=== PATIENT | male | born 1955 | race Caucasian/White ===

== ENCOUNTER 2021-09-29 10:42 | Outpatient (CLI) | payer MEDICARE, SELFPAY ==
[2021-09-29 19:17] LABS: Alanine Aminotransferase 13 U/L (6-50); Albumin Level 4.1 g/dL (3.5-5.1); Aspartate Amino Transferase 44 U/L (17-59); Bilirubin,Total 0.6 mg/dL (0.2-1.3)
[2021-09-29 20:57] LABS: Alkaline Phosphatase 2708 U/L (38-126)
== END 2021-09-29 10:43 | disposition home or self-care (01) ==
LOC: ANHGOSHLAB 10:48
PROVIDERS: PCP Podiatrist Foot & Ankle Surgery; Visit Provider Podiatrist Foot & Ankle Surgery
DX: B35.1 Tinea unguium (principal)
CPT/HCPCS: 36415; 80076

== ENCOUNTER → 2021-11-25 10:51 | Outpatient (CLI) | payer MEDICARE, BC, SELFPAY ==
--- NOTE | ~2021-11-25 | CT_ITS ---
EXAMINATION: CT lung screening DATE: 11/25/2021 11:31 INDICATION: Personal history of nicotine dependence, current smoker with 48 pack year history TECHNIQUE: Computed tomography (CT) of the chest was performed without intravenous contrast. The dose -length product (DLP) was 81.17 mGy-cm. Automated exposure control and iterative reconstruction techn ique were employed. COMPARISON: None FINDINGS: There is a 4 mm nodule of the left lower lobe in association with the major fissure. There is mild emphysema. There are some areas of pleural thickening in the upper lobes which could reflect prior asbestos exposure. Calcified pulmonary nodules are consistent with old granulomatous disease. N o pathologically enlarged thoracic lymph nodes are identified. The heart size is normal. There is cor onary artery atherosclerosis. There is soft tissue density in the anterior mediastinum. There is wide spread sclerosis involving all visualized bones. IMPRESSION: 1. Lung-RADS category 2S: Benign appearance or behavior. Continue annual screening with noncontrast l ow-dose chest CT in 12 months. 2. Widespread sclerosis involving all visualized osseous structures concerning for metastatic disease , specifically prostate cancer. Recommend clinical correlation. These findings and recommendations were discussed with Dr. Harris Hodge MD at 1635 hours on 11/25/2021 . Reviewed, dictated and finalized at location B. IMPRESSION: 1. Lung-RADS category 2S: Benign appearance or behavior. Continue annual screen ing with noncontrast low-dose chest CT in 12 months. 2. Widespread sclerosis involving all visualized osseous structures concerning for metastatic disease, specifically prostate cancer. Recommend clinical correl ation. These findings and recommendations were discussed with Dr. Harris Hodge MD at 1 635 hours on 11/25/2021.
--- NOTE | ~2021-11-25 | MR_ITS ---
EXAMINATION: MR lumbar spine wo con DATE: 11/25/2021 11:21 INDICATION: Low back pain. Bilateral leg pain. TECHNIQUE: Magnetic resonance imaging (MRI) of the lumbar spine was performed without intravenous con trast. Sequences included sagittal T2-weighted FSE, sagittal T2-weighted FS FSE, sagittal T1-weighted FSE, and axial T2-weighted FSE. COMPARISON: None FINDINGS: There is 3 degrees levocurvature of lumbar spine. There is 5 mm retrolisthesis of L1 on L2 and 3 mm retrolisthesis of L2 on L3. Vertebral body heights are normal. There is widespread sclerosis involving all bones. There is moderately decreased disc height at L1-L2, mildly decreased disc heigh t at L2-L3 and L3-L4, and moderately decreased disc height at L4-L5. The distal spinal cord signal in tensity is normal. The conus medullaris is at T12-L1. The following disc levels are specifically disc ussed: L1-L2: The disc is bulging. There is mild bilateral facet joint osteoarthritis. There is mild bilater al neural foraminal stenosis. There is mild central canal stenosis. L2-L3: The disc is bulging and has an annular fissure. There is mild bilateral facet joint osteoarthr itis. There is mild bilateral neural foraminal stenosis. There is mild central canal stenosis. L3-L4: The disc is bulging and has an annular fissure. There is mild right and moderate left facet endy int osteoarthritis. There is mild bilateral neural foraminal stenosis. There is mild central canal st enosis. L4-L5: The disc is bulging. There is severe bilateral facet joint osteoarthritis. There is mild bilat eral neural foraminal stenosis. There is mild central canal stenosis. L5-S1: The disc does not extend beyond the endplate margin. There is mild bilateral facet joint osteo arthritis. There is no neural foraminal stenosis. There is no central canal stenosis. IMPRESSION: 1. Diffuse sclerosis of the bones, consistent with metastatic disease. 2. Moderate lumbar spondylosis. Reviewed, dictated and finalized at location A.
== END ==
PROVIDERS: PCP Emergency Medicine; Visit Provider Emergency Medicine
DX: Z12.2 Encounter for screening for malignant neoplasm of respiratory organs (principal); M54.41 Lumbago with sciatica, right side; Z87.891 Personal history of nicotine dependence; M47.896 Other spondylosis, lumbar region
CPT/HCPCS: 71271; 72148

== ENCOUNTER 2021-12-13 10:37 | Outpatient (CLI) | payer MEDICARE, BC, SELFPAY ==
--- NOTE | ~2021-12-13 | CT_ITS ---
EXAMINATION: CT biopsy bone deep ORDER COMPLETED DATE: 12/13/2021 12:11 INDICATION: Prostate cancer with diffuse sclerotic bone lesions. TECHNIQUE: A time-out was performed to verify the patient's name, date of , and procedure to b e performed. The procedure including the risks and benefits was discussed with the patient. Risks dis cussed included bleeding, infection and allergic reaction. The patient understood the risks and agree d to proceed. The skin overlying the left posterior iliac spine was prepped and draped in usual steri le fashion. Anesthetic was administered with 1% lidocaine subcutaneously. An 8 gauge needle was then inserted into the ilium with CT guidance. A core bone marrow biopsy was obtained. The needle was rem xavier and the entry site was cleaned and dressed. There were no immediate complications. The mAs was manually decreased to minimize radiation exposure. The dose-length product was 202.84 mGy-cm. FINDINGS: CT images demonstrate the biopsy needle advanced across a region of increased sclerosis at the left posterior iliac spine. IMPRESSION: 1. Successful CT guided bone marrow biopsy of a region of sclerosis at the left posterior iliac spine . Reviewed, dictated and finalized at location A. IMPRESSION: 1. Successful CT guided bone marrow biopsy of a region of sclerosis at the left posterior iliac spine.
== END 2021-12-13 10:38 | disposition home or self-care (01) ==
LOC: ANHIMG 10:45
PROVIDERS: PCP Emergency Medicine; Visit Provider Internal Medicine Hematology & Oncology
DX: C61 Malignant neoplasm of prostate (principal)
CPT/HCPCS: 20225; 77012; 88307; 88311; 88342

== ENCOUNTER 2024-05-23 23:27 | Inpatient (IN) | payer MEDICARE, SELFPAY ==
--- NOTE | ~2024-05-23 | CT_ITS ---
Clinical Indication: Coffee-ground emesis, upper GI bleed CT Scan of the Chest, Abdomen, and Pelvis with Contrast: Technique: Contiguous sections were acquired throughout the chest, abdomen, and pelvis after intraven ous administration of 100 cc of Omnipaque 350. Dose reduction technique was used on this scan by uti andiing automated exposure control and iterative reconstruction technique. The dose-length product (DL P) was 747.57 mGy-cm. Comparison: 11/25/2021 Findings: Endotracheal tube and NG tube are in place. ET tube tip is at the right mainstem bronchus o rigin. There is no evidence of any significant mediastinal, hilar or axillary lymphadenopathy. The mediastin al soft tissues appear normal. There is no evidence of pleural or pericardial effusion.. Stable areas of mild pleural thickening in the upper lobes, consistent with mild pleural plaques. The lungs are clear. No pulmonary nodules or infiltrates are noted. The liver, spleen, gallbladder, adrenals and kidneys are within normal limits. Possible 2.2 cm hypode nse mass at the pancreatic head. No pancreatic ductal dilatation. There are atherosclerotic calcifica tions of the aorta. No lymphadenopathy. No bowel obstruction or bowel wall thickening. There is no evidence to suggest acute appendicitis. Urinary bladder is collapsed around a Hedrick catheter. No pelvic mass seen. No ascites. 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 Impression: No CTA evidence for active GI bleeding. ET tube tip at the remaining some resorption. Retraction advised. Possible 2.2 cm hypodense pancreatic head mass. Follow-up dedicated pancreatic mass protocol CT recom mended to further evaluate. Diffuse osteoblastic metastatic disease. Reviewed, dictated and finalized at [facility]. Impression: No CTA evidence for active GI bleeding. ET tube tip at the remaining some resorption. Retraction advised. Possible 2.2 cm hypodense pancreatic head mass. Follow-up dedicated pancreatic mass protocol CT recommended to further evaluate. Diffuse osteoblastic metastatic disease.
--- NOTE | ~2024-05-23 | XR_ITS ---
Supine portable view of the abdomen Clinical history: NG tube placement Findings: NG tube in satisfactory position. Bowel gas pattern is nonspecific. No evidence for obstruc tion or free air. No abnormal mass lesion or calcification is seen. Probable extensive osteoblastic m etastatic disease. Impression: NG tube in satisfactory position. Nonspecific bowel gas pattern. Diffuse osteoblastic metastatic disease suspected. Reviewed, dictated and finalized at [facility]. Impression: NG tube in satisfactory position. Nonspecific bowel gas pattern. Diffuse osteoblastic metastatic disease suspected.
--- NOTE | ~2024-05-23 | CT_ITS ---
Non-contrast Head CT History: Altered mental status Technique: Axial non-contrast imaging of the brain was performed. Dose reduction technique was used on this scan by utilizing automated exposure control and iterative reconstruction technique. The dose -length product (DLP) was 756.67 mGy-cm. Findings: There is a moderate-sized acute left subdural hematoma along the left cerebral convexity, m easuring up to 2.3 cm in thickness. Possible small amount of extension of subdural hematoma along the posterior aspect of the falx cerebri. There is compression of the left lateral ventricle, with right alvares midline shift of up to 10 mm. Probable mild dilatation of the right lateral ventricle, which cou ld reflect mild evolving hydrocephalus. The calvarium appears normal. The visualized paranasal sinus es and mastoid air cells are clear. Impression: Moderate-sized acute left subdural hematoma measuring 2.3 cm in thickness. Mass effect results in com pression of the left lateral ventricle and rightward midline shift of up to 10 mm. Probable dilatation of the right lateral ventricle which could reflect developing hydrocephalus. Reviewed, dictated and finalized at location M. Impression: Moderate-sized acute left subdural hematoma measuring 2.3 cm in thickness. Mass effect results in compression of the left lateral ventricle and rightward midl ine shift of up to 10 mm. Probable dilatation of the right lateral ventricle which could reflect developi ng hydrocephalus.
--- NOTE | ~2024-05-23 | XR_ITS ---
Portable chest x-ray Comparison: None Clinical History: ET tube placement Findings: Endotracheal tube, NG tube, and right-sided Mediport in place. Lungs are clear, without fo logan consolidation or pleural effusion. Cardiomediastinal silhouette is stable. Bones and soft tissue s are unremarkable. Impression: Clear lungs. Support tubes, as above. Reviewed, dictated and finalized at location . Impression: Clear lungs. Support tubes, as above.
[2024-05-23 23:24] VITALS: BP 186/70; PULSE 53; RESP 22; TEMP 37; O2SAT 96
[2024-05-24] VITALS (55 sets, daily range): BP systolic 108–182; BP diastolic 54–89; PULSE 53–101; RESP 13–100; TEMP 36.4–36.7; O2SAT 91–100
[2024-05-24 00:26] LABS: Hematocrit 21.4 % (42.0-52.0); Immature Platelet Fraction Pct 8.9 % (0.9-11.2); Mean Corpuscular HGB Conc 31.8 g/dl (32-36); Mean Corpuscular Hemoglobin 27.3 pg (26-34); Mean Corpuscular Volume 85.9 fl (80-100); Red Blood Count 2.49 M/mm3 (4.6-6.20); Red Cell Distribution Width 19.7 % (11.5-14.5); White Blood Count 5.5 K/mm3 (4.5-10.0)
[2024-05-24 00:28] LABS: Platelet Count Result 26 k/mm3 (150-375)
[2024-05-24 00:29] LABS: Hemoglobin 6.8 g/dL (14.0-18.0)
--- OUTSIDE RECORDS SUMMARY | 2024-05-24 00:31 | XMS_ITS ---
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 Pancreatic mass 12/16/2021 Prostate cancer 12/02/2021 Current Treatment and Therapy Plans PROSTATE CABAZITAXEL-PREDNISONE - [facility]* Plan Start Date:05/13/2024 Plan Provider:José Goldman MD Linked Problems Prostate cancer (HCC) Treatment Medications Current Day (Day 1 , Cycle 2 - Planned for 06/06/2024) Next Day (Day 1, Cycle 3 - Planned for 06/27/2024) cabazitaxel (JEVTANA) chemo infusion cabazitaxel (JEVTANA) 38 mg in sodium chloride 0.9 % 250 mL chemo infusion cabazitaxel (JEVTANA) 38 mg in sodium chloride 0.9 % 250 mL chemo infusion Retail: [facility]* Plan Start Date:05/03/2023 Plan Provider:José Goldman MD Linked Problems Prostate cancer (HCC) Treatment Medications Current Day (Day 1, Cycle 6 - Planned for 06/27/2024) No medications scheduled. No medications schedul ed. SUPPORT - HYDRATION WITHOUT ADDITIVES - [facility]* Plan Start Date:04/27/2023 Plan Provider:José Goldman MD Linked Problems Prostate cancer (HCC) Treatment Medications No medications scheduled. SUPPORT - ZOMETA - [facility]* Plan Start Date:08/27/2022 Plan Provider:José Goldman MD Linked Problems Prostate cancer (HCC) Treatment Medications No medications scheduled. Past Treatment and Therapy Plans ONCOLOGY TREATMENT Plan Name Start Date Discontinue Date Treatment Medications Discontinue Reason Plan Provider Cycles PROSTATE DOCETAXEL (TAXOTERE) - [facility] 02/17/20 23 05/07/2024 DOCEtaxel (TAXOTERE) chemo infusionDOCEtaxel (TAXOTERE) using 10mg/mL chemo infusion Plan Clean Up José Goldman MD 15 of 15 cycles started [facility]: Leuprolide (Lupron, Eligard) / Triptorelin (Trelstar) - 3 Month - Prostate 12/08/19 22 02/12/2023 No medications scheduled. Therapy Complete José Goldman MD 6 (7 of 7 cycles) started
--- OUTSIDE RECORDS SUMMARY | 2024-05-24 00:31 | XMS_ITS | Clinical Summary ---
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 Active ondansetron (ZOFRAN) 4 MG TabletIndicati ons:Prostate cancer (HCC) Take 1 Tablet by mouth every 6 hours as needed for Nausea - 1st line. 40 Tablet 3 02/17/20 Active Additional Information Patient not taking.Reported on 05/22/2024 prochlorperazi ne (COMPAZINE) 10 MG TabletIndicati ons:Prostate cancer (HCC) Take 1 Tablet by mouth every 4 hours as needed for Nausea - 1st line. 40 Tablet 3 02/17/20 Active Additional Information Patient not taking.Reported on 05/22/2024 cholestyramine (QUESTRAN) 4 GM Pack Take 1 Packet by mouth 3 times daily (with meals). 180 Packet 3 12/21/20 23 Active Additional Information Patient not taking.Reported on 05/22/2024 mirtazapine (Remeron) 15 MG Tablet Take 0.5 Tablets by mouth nightly. 30 Tablet 2 03/01/20 23 Active Cholecalcifero l (VITAMIN D-3 PO) Take by mouth. Activ e predniSONE (DELTASONE) 5 MG TabletIndicati ons:Prostate cancer (HCC) Take 1 Tablet by mouth 2 times daily. Use as directed. 60 Tablet 3 08/03/19 24 Active Additional Information Patient not taking.Reported on 05/22/2024 dexamethasone (DECADRON) 4 MG TabletIndicati ons:Prostate cancer (HCC) Take 2 Tablets by mouth See Admin Instructions. Take 2 tablets BID on day before and day after docetaxel treatment. 32 Tablet 3 10/12/19 24 Active Additional Information Patient not taking.Reported on 05/22/2024 furosemide (LASIX) 40 MG Tablet Take 1 Tablet by mouth daily. 90 Tablet 1 01/18/20 24 Active potassium chloride SA (KLORCON M) 20 MEQ Tablet Controlled Release TAKE 1 TABLET BY MOUTH DAILY 30 Tablet 02/21/20 24 Active triamcinolone (KENALOG) 0.1 % Cream Application Site:bid affected areas 45 g 02/25/20 24 Active Additional Information Patient not taking.Reported on 05/22/2024 HYDROcodone-ac etaminophen (NORCO) 5-325 MG TabletIndicati ons:Prostate cancer (HCC) Take 1 Tablet by mouth every 8 hours as needed for Moderate or more severe pain. 60 Tablet 03/31/19 25 Active leuprolide (Eligard) 22.5 MG Kit 22.5 mg by Subcutaneous route See Admin Instructions. 1 Kit 5 04/01/19 25 Active Additional Information Patient not taking.Reported on 05/22/2024 ipratropium (ATROVENT) 0.06 % Solution 04/17/19 25 Active megestrol (MEGACE) 400 MG/10ML Suspension Take 10 mL by mouth daily for 30 days. 600 mL 1 05/02/19 25 025 Active Additional Information Patient not taking.Reported on 05/22/2024 OLANZapine (ZyPREXA) 5 MG Tablet Take 1 Tablet by mouth nightly. 30 Tablet 3 05/02/19 25 Active predniSONE (DELTASONE) 10 MG TabletIndicati ons:Prostate cancer (HCC) Take 1 Tablet by mouth daily. 30 Tablet 5 05/16/19 25 Active ondansetron (ZOFRAN) 4 MG TabletIndicati ons:Prostate cancer (HCC) Take 1 Tablet by mouth every 6 hours as needed for Nausea - 1st line. 40 Tablet 3 05/16/19 25 Active Additional Information Patient not taking.Reported on 05/22/2024 prochlorperazi ne (COMPAZINE) 10 MG TabletIndicati ons:Prostate cancer (HCC) Take 1 Tablet by mouth every 4 hours as needed for Nausea - 1st line. 40 Tablet 3 05/16/19 25 Active Additional Information Patient not taking.Reported on 05/22/2024 oxyCODONE-Acet aminophen (PERCOCET) 10-325 MG TabletIndicati ons:Prostate cancer (HCC) Take 1 Tablet by mouth every 6 hours as needed for Moderate or more severe pain. 60 Tablet 05/23/19 25 Active predniSONE (DELTASONE) 10 MG TabletIndicati ons:Prostate cancer (HCC) Take 1 Tablet by mouth daily. 30 Tablet 05/23/19 25 Active tamsulosin (FLOMAX) 0.4 MG Capsule Take 1 Capsule by mouth daily. 90 Capsule 1 05/18/19 24 025 Discontinu ed(Med List Clean Up) sulfamethoxazo le-trimethopri m DS (BACTRIM DS, SEPTRA DS) 800-160 MG Tablet Take 1 Tablet by mouth three times a week for 12 doses. 12 Tablet 04/18/19 25 025 oxyCODONE-Acet aminophen (PERCOCET) 10-325 MG TabletIndicati ons:Prostate cancer (HCC) Take 1 Tablet by mouth every 6 hours as needed for Moderate or more severe pain. 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 Pancreatic mass 12/16/2021 Prostate cancer 12/02/2021 Encounters Date Type Department Care Team Description 05/22/2024 10:15 AM CDT Office Visit [facility] [address] [address] José Goldman MD Prostate cancer (HCC) (Primary Dx) 05/22/2024 9:00 AM CDT Clinical Support [facility] [address] [address] Nurse, Cc Alvaradoayala Prostate cancer (HCC) (Primary Dx) 05/22/2024 Travel 05/15/2024 10:45 AM FACSIMILE OPERATOR Clinical Support [facility] [address] [address] Nurse, Cc Ofzayra Prostate cancer (HCC) 05/15/2024 10:30 AM FACSIMILE OPERATOR Office Visit [facility] [address] [address] José Goldman MD Prostate cancer (HCC) (Primary Dx) 05/15/2024 Travel 05/09/2024 9:30 AM FACSIMILE OPERATOR Ancillary Procedure [facility] [address] [address] Prostate cancer (HCC) 05/09/2024 Telephone [facility] [address] [address] Austyn Pelletier MD 05/09/2024 Travel 05/08/2024 10:50 AM FACSIMILE OPERATOR Care Management [facility] [address] [address] Navigator, Cc Ebony Nurse Care Management (EDUCATION PREP) 05/05/2024 Telephone [facility] [address] [address] Austyn Pelletier MD 05/02/2024 9:15 AM FACSIMILE OPERATOR Office Visit [facility] [address] [phone] oJsé Goldman MD Prostate cancer (HCC) (Primary Dx) 05/02/2024 9:00 AM FACSIMILE OPERATOR Lab [facility] [address] [address] Nurse, Cc Brandyzayra Prostate cancer (HCC) 05/02/2024 Travel 04/18/2024 11:30 AM FACSIMILE OPERATOR Clinical Support [facility] [address] [address] Nurse, Cc Ebony Prostate cancer (HCC) (Primary Dx) 04/18/2024 11:15 AM FACSIMILE OPERATOR Office Visit [facility] [address] [address] José Goldman MD Prostate cancer (HCC) (Primary Dx) 04/18/2024 Telephone [facility] [address] [address] Austyn Pelletier MD 04/18/2024 Travel 04/11/2024 10:00 AM FACSIMILE OPERATOR Lab [facility] [address] [address] Nurse, Cc Ebony Prostate cancer (HCC) 04/11/2024 Travel 04/08/2024 Telephone [facility] [address] [address] Austyn Pelletier MD 04/03/2024 10:45 AM FACSIMILE OPERATOR Office Visit [facility] [address] [address] Jadyn Grewal APRN, CNP Prostate cancer (HCC) (Primary Dx); Weakness 04/03/2024 Travel 04/01/2024 Refill [facility] [place] [address], [address] [place] [address] José Goldman MD Medication Refill (eligard) 03/31/2024 MyChart RX Renewal [facility] [address] [address] José Goldman MD Medication Renewal Reviewed 03/14/2024 Travel 03/07/2024 Refill [facility] [place] [address] [place] [address] José Goldman MD Medication Refill (Lupron/) 03/04/2024 Telephone [facility] [address] [phone] Austyn Pelletier MD 02/29/2024 11:00 AM FACSIMILE OPERATOR Lab [facility] [address] [address] Nurse, Amanda Alvarado Prostate cancer (HCC) 02/29/2024 Travel 02/25/2024 MyChart RX Renewal [facility] [address] [phone] José Goldman MD Medication Renewal Reviewed from Last 3 Months Immunizations Immunization Administration Dates Next Due Covid-19, Mrna, Lnp-s, Pf, 3 0 Mcg/0.3 Ml Dose (Pfizer) 12/16/2020,05/28/2020,05/07/2020 Covid-19, Mrna, Lnp-s, Pf, 3 0 Mcg/0.3 Ml Dose, Michel-sucrose ([email or web address] cloud top) 08/22/2021 Influenza Vaccine 12/03/2019 Influenza Vaccine, MDCK,quad rivalent, pres free 12/18/2018 Influenza, High-dose, Quadrivalent 12/12/2022,,12/16/2020 Influenza, Seasonal, Injectable, Undefined 12/16 Influenza, high-dose, trivalent, PF 01/03/2024 Pneumococcal Vaccine - 13 Valent 12/16/2020 Pneumococcal conjugate PCV20 , polysaccharide [id number] conjugate, adjuvant, PF 01/01/2022 RSV, Recombinant, Protein Jo bunit Rsvpref, Adjuvant Recon (Arexvy) 12/12/2022 Family History Medical History Relation Name Comments Stroke Mother Relation Name Status Comments Brother Alive Father Mother Social History Tobacco Use Types Packs/Day Years Used Date Smoking Tobacco: Heavy Smoker Cigarettes Smokeless Tobacco: Never Tobacco Cessation:Ready to Q uit: Not Asked; Counseling Given: Not Answered Alcohol Use Standard Drinks/Week Comments Never 0 (1 standard drink = 0.6 oz pur e alcohol) Sex and Gender Information Value Date Recorded Sex Assigned at Not on file Legal Sex Male 1:54 PM CDT Gender Identity Not on file Sexual Orientation Not on file Last Filed Vital Signs Vital Sign Reading Time Taken Comments Blood Pressure 130/70 05/22/2024 10:39 AM CDT Pulse 68 05/22/2024 10:39 AM CDT Temperature 36.7 C (98 F) 05/22/2024 10:39 AM CDT Respiratory Rate 18 05/22/2024 10:39 AM CDT Oxygen Saturation 97% 05/22/2024 10:39 AM CDT Inhaled Oxygen Concentration - - Weight 80.3 kg (177 lb) 05/22/2024 10:39 AM CDT Height 170.2 cm (5' 7 ) 05/22/2024 10:39 AM CDT Body Mass Index 27.72 05/22/2024 10:39 AM CDT Plan of Treatment Upcoming Encounters Date Type Department Care Team (Late st Contact Info) Description 05/26/2024 7:45 AM CDT Clinical Support [facility] [address] [phone] Nurse, [facility] 05/26/2024 8:00 AM CDT Procedure Visit [facility] [address] [address] José Goldman MD [address] [place] [address] [place] [id number] Health Maintenance Due Date Last Done Comments Hepatitis C Virus (HCV) Screening 1955 TdaP Immunization 1955 Zoster Immunization (1 of 2) 1972 Colonoscopy 1998 Colorectal Cancer Screening 1998 Cologuard 07/07/2003 Immunochemical Fecal Occult Blood 07/07/2003 AAA Screening Ultrasound 2018 SARS-COV-2 Immunization (7 - Pfizer risk 2023- season) 2024 01/03/2024, 02/23/2022, 08/22/2021, Additional history exists Pneumococcal Immunization (50+ years) Completed 01/01/2022, 12/16/2020 Respiratory Syncytial Virus (RSV) Immunization (Adult) Completed 12/12/2022 Influenza Immunization Completed , 12/12/2022, 12/07/2021, Additional history exists PSA Discussion Discontinued 05/22/2024, 030 08/2024, 05/02/2024, Additional history exists Hepatitis B Immunization Aged Out No longer eligible based on patient's age to complete this topic Meningococcal Immunization (ACWY) Aged Out No longer eligible based on patient's age to complete this topic Rotavirus Immunization Aged Out No lo nger eligible based on patient's age to complete this topic Procedures Procedure Name Priority Date/Time Associated Diagnosis Comments CMP (COMPREHENSIVE METABOLIC PANEL) Routine 05/22/2024 10:18 AM CDT Prostate cancer (HCC) COMPLETE BLOOD COUNT (CBC) WITH DIFF Routine 05/22/2024 10:18 AM CDT Prostate cancer (HCC) PSA DIAGNOSTIC,TOTAL Routine 05/22/2024 10:18 AM CDT Prostate cancer (HCC) COMPLETE BLOOD COUNT (CBC) WITH DIFF Routine 05/15/2024 10:51 AM FACSIMILE OPERATOR Prostate cancer (HCC) CMP (COMPREHENSIVE METABOLIC PANEL) Routine 05/15/2024 10:51 AM FACSIMILE OPERATOR Prostate cancer (HCC) PSA DIAGNOSTIC,TOTAL Routine 05/15/2024 10:51 AM FACSIMILE OPERATOR Prostate cancer (HCC) PET CT TUMOR IMAGING, PROSTATE, SKULL BASE TO MID THIGH Stat with Interpretation 05/09/2024 11:04 AM FACSIMILE OPERATOR Prostate cancer (HCC) CMP (COMPREHENSIVE METABOLIC PANEL) Routine 05/02/2024 9:06 AM FACSIMILE OPERATOR Prostate cancer (HCC) COMPLETE BLOOD COUNT (CBC) WITH DIFF Routine 05/02/2024 9:06 AM FACSIMILE OPERATOR Prostate cancer (HCC) PSA DIAGNOSTIC,TOTAL Routine 05/02/2024 9:06 AM FACSIMILE OPERATOR Prostate cancer (HCC) PSA DIAGNOSTIC,TOTAL Routine 04/11/2024 9:15 AM FACSIMILE OPERATOR Prostate cancer (HCC) CMP (COMPREHENSIVE METABOLIC PANEL) Routine 04/11/2024 9:15 AM FACSIMILE OPERATOR Prostate cancer (HCC) COMPLETE BLOOD COUNT (CBC) WITH DIFF Routine 04/11/2024 9:15 AM FACSIMILE OPERATOR Prostate cancer (HCC) CBC WITH AUTO DIFF OH Routine 02/29/2024 11:02 AM FACSIMILE OPERATOR PSA DIAGNOSTIC,TOTAL Routine 02/29/2024 11:02 AM FACSIMILE OPERATOR Prostate cancer (HCC) CMP (COMPREHENSIVE METABOLIC PANEL) Routine 02/29/2024 11:02 AM FACSIMILE OPERATOR Prostate cancer (HCC) from Last 3 Months Results * (ABNORMAL) PSA DIAGNOSTIC,TOTAL (05/22/2024 10:18 AM CDT) Only the most recent of5 resultswithin the time period is included. PSA 1,773.79( H) 0.00 - 4.00 ng/mL [facility] Comment: Ofelia Paramagnetic Particle Chemiluminescent Immunoassay Method. Standardized against the WHO standard. Blood 05/22/2024 10:[address] [facility] - 05/23/2024 3:52 PM CDT Release to patient->Immediate Austyn Pelletier MD CHEMISTRY ORDERABLES Final Resul t [facility] [facility] [place] [address], * (ABNORMAL) CMP (COMPREHENSIVE METABOLIC PANEL) (05/22/2024 10:18 AM CDT) Only the most recent of5 resultswithin the time period is included. Glucose 97 70 - 105 mg/dL [facility] Blood Urea Nitrogen 12 7 - 25 mg/dL [facility] Creatinine 0.4(L) 0.7 - 1.3 mg/dL [facility] Sodium 136 136 - 145 mEq/L [facility] Potassium 3.9 3.5 - 5.1 mEq/L [facility] Chloride 107 98 - 107 mEq/L [facility] Bicarbonate 22 21 - 31 mEq/L [facility] Total Bilirubin 0.7 0.3 - 1.0 mg/dL [facility] Alk. Phosphatase 756(H) 34 - 104 U/L [facility] Aspartate Aminotransferase 28 13 - 39 U/L [facility] Alanine Aminotransferase 8 7 - 52 U/L [facility] Total Protein 5.6(L) 6.4 - 8.9 g/dL [facility] Albumin 3.5 3.5 - 5.7 g/dL [facility] Calcium 8.2(L) 8.6 - 10.3 mg/dL [facility] Anion Gap 10.9 7.0 - 15.0 mEq/L [facility] Globulin 2.1 2.0 - 3.5 g/dL [facility] EGFR 117 >60 ml/min/1. 73m2 [facility] Comment: This eGFR is calculated using 2020 CKD-EPI Creatinine equation without race modifier based on the NKF-ASN task force recommendations Equation: dDFJ=672*min(SCr/k,1)a*max(SCr/k,1)-1.200*0.9938Age*1.012 (if female), where SCr is serum creatinine, k is 0.7 for females and 0.9 for males, and a is -0.241 for females and -0.302 for males Blood 05/22/2024 10:1 8 AM CDT Narrative [facility] - 05/22/2024 11:22 AM CDT Release to patient->Immediate IS THE PATIENT REQUIRED TO BE FASTING FOR 8 HOURS?->No Austyn Pelletier MD CHEMISTRY ORDERABLES Final Resul t [facility] [employer] [facility] [place] [address], * (ABNORMAL) COMPLETE BLOOD COUNT (CBC) WITH DIFF (05/22/2024 10:18 AM CDT) Only the most recent of4 resultswithin the time period is included. WBC 4.4 4.0 - 10.0 10*3/uL [facility] [employer] [facility] HGB 7.7(L) 13.7 - 17.5 g/dL [facility] [employer] HCT 24.5(L) 40.1 - 51.0 % [facility] [employer] PLT 40(L) 163 - 369 10*3/uL [facility] MPV 10.0 9.4 - 12.4 fL [facility] [facility] RBC 2.85(L) 4.63 - 6.08 10*6/uL [facility] [employer] MCV 86 79 - 95 fL [facility] MCH 27.0 25.6 - 32.2 pg [facility] [facility] MCHC 31.4(L) 32.2 - 36.5 g/dL [facility] RDW 19.8(H) 11.6 - 14.4 % [facility] [employer] Absolute Neutrophil Count 3,293 cells/uL [facility] Absolute Seg Count 3,161 1,440 - 6,600 cells/uL [facility] Absolute Band Count 132 0 - 800 cells/uL [facility] Absolute Lymph Count 527(L) 760 - 4,000 cells/uL [facility] Absolute Ford Count 132(L) 160 - 1,200 cells/uL [facility] Absolute Eos Count 44 0 - 300 cells/uL [facility] Segmented Neutrophils 72(H) 36 - 66 % [facility] [facility] [facility] Band Neutrophils 3 0 - 8 % [facility] Lymphocytes 12(L) 19 - 40 % [facility] Monocytes 3(L) 4 - 12 % [facility] Eosinophils 1 0 - 3 % [facility] Metamyelocytes 4(H) 0 - 2 % C[facility] R [employer] [facility] Myelocytes 5(H) 0 - 2 % [facility] WBC Estimate Normal [facility] [facility] Platelet Estimate Low CA NCER [employer] RBC Morphology Abnormal [facility] R [employer] Anisocytosis 2+ [facility] [facility] [facility] Blood 05/22/2024 10:1 8 AM CDT Narrative [facility] [facility] [facility] - 05/22/2024 2:31 PM CDT Release to patient->Immediate us Austyn Pelletier MD HEMATOLOGY ORDERABLES Final Resu lt [facility] [place] [address], * PET CT TUMOR IMAGING, PROSTATE, SKULL BASE TO MID THIGH (05/09/2024 11:04 AM FACSIMILE OPERATOR) Anatomical Region Laterality Modality BODY N/A Computed Tomogra phy Narrative 05/09/2024 11:44 AM FACSIMILE OPERATOR EXAMINATION: PET CT TUMOR IMAGING, PROSTATE, SKULL BASE TO MID THIGH 05/09/2024 INDICATIONS: Malignant neoplasm of prostate. Metastatic prostate carcinoma 2021 with bone metastases. PSA most recently 535 in April 2024. Back and left arm pain. Pluvicto March 2024. Restaging and subsequent treatment planning. COMPARISON: PET-CT 01/10/2024 as well as exams dating back to 12/05/2021. TECHNIQUE: Following the intravenous administration of 8.33 mCi F 18 Pylarify and 100 CC Omnipaque PET-CT was performed from the skull vertex to the mid thighs multiplanar and MIP reconstructions were created. A dose lowering technique was used for this procedure, which may include, but is not limited to, dose reduction technique(s), automated exposure control techniques, use of iterative reconstruction techniques, and ALARA (as low as reasonably achievable) or ALARA/IMAGE Gently techniques. FINDINGS: Head and neck: Intracranial: No mass, mass effect, or worrisome activity is appreciated. Extracranial: Physiologic glandular activity. A prominent left posterior triangle lymph node has increased in size and demonstrates mild activity (fused axial image 75). Bilateral carotid atherosclerotic calcifications. Chest: Cardiovascular: Right chest wall [id number]. Normal heart size. No significant pericardial effusion. Atherosclerotic calcifications of the coronary arteries and thoracic aorta. The thoracic aorta is normal in caliber. Pulmonary: There are new small bilateral pleural effusions. Pleural plaquing is redemonstrated. No worrisome pulmonary nodules or activity are appreciated. Lymphatics: There is new left axillary and retropectoral hypermetabolic lymphadenopathy which is favored malignant. Abdomen and pelvis: Hepatobiliary: Hepatic steatosis. Hepatic cysts are redemonstrated. No worrisome hepatic or pancreatic activity is noted. Liver parenchyma demonstrates max SUV 3.24. Complex cystic lesion of the pancreatic head again noted, better assessed on previous MRI. No significant biliary ductal dilatation is appreciated. : The adrenal glands are unremarkable. Small left lower pole renal cyst again noted. No hydronephrosis. The urinary bladder is incompletely distended though with irregular wall thickening on the right which appears to be new and is concerning for neoplasm (series 3, image 248 for example). Prostate is present and demonstrates heterogeneous low-level to mild activity, decreased from prior. GI: Colonic diverticulosis without evidence of acute diverticulitis. Appendix is unremarkable. The stomach appears unremarkable. Probable physiologic activity within loops of small bowel. No free intraperitoneal fluid or air is appreciated. Lymphatics: The spleen is within normal limits in size though does appear to have enlarged since prior, may be treatment related. Prominent left inguinal lymph node with low-level activity is unchanged. No developing lymphadenopathy is appreciated in the abdomen or pelvis. Vascular: Atherosclerotic calcifications with no abdominal aortic aneurysm. Musculoskeletal: Redemonstrated is widespread sclerotic osseous metastatic disease of the axial and appendicular skeleton. This is similar to prior in CT appearance though has significantly worsened in the degree of activity, now with heterogeneous hypermetabolic activity throughout. IMPRESSION 1. Evidence of interval disease progression. 2. Widespread osseous metastatic disease has significantly worsened with increased activity throughout. 3. Enlarging hypermetabolic lymph nodes in the neck and chest are favored malignant. 4. Concern for a new urinary bladder mass on the right. Recommend cystoscopy. 5. New small bilateral pleural effusions. 6. Pleural plaquing is redemonstrated. 7. Complex cystic pancreatic head lesion again noted, better assessed on MRI. 8. Heterogeneous low-level to mild prostatic activity, decreased from prior. 9. Interval enlargement of the spleen, still within normal limits in size, potentially treatment related. Electronically signed by: YASMEEN JACKSON MD Date of Signature: 05/09/2024 11:44:38 Procedure Note Yasmeen Jackson MD - 05/09/2024 EXAMINATION: PET CT TUMOR IMAGING, PROSTATE, SKULL BASE TO MID THIGH 05/09/2024 INDICATIONS: Malignant neoplasm of prostate. Metastatic prostate carcinoma 2021 withbone metastases. PSA most recently 535 in April 2024. Back and leftarm pain. Pluvicto March 2024. Restaging and subsequent treatmentplanning. COMPARISON: PET-CT 01/10/2024 as well as exams dating back to 12/05/2021. TECHNIQUE: Following the intravenous administration of 8.33 mCi F 18 Pylarify and 100CC Omnipaque PET-CT was performed from the skull vertex to the mid thighsmultiplanar and MIP reconstructions were created. A dose lowering technique was used for this procedure, which may include,but is not limited to, dose reduction technique(s), automated exposurecontrol techniques, use of iterative reconstruction techniques, and ALARA(as low as reasonably achievable) or ALARA/IMAGE Gently techniques. FINDINGS: Head and neck: Intracranial: No mass, mass effect, or worrisome activity isappreciated. Extracranial: Physiologic glandular activity. A prominent left posteriortriangle lymph node has increased in size and demonstrates mild activity(fused axial image 75). Bilateral carotid atheroscleroticcalcifications. Chest: Cardiovascular: Right chest wall [id number]. Normal heart size. Nosignificant pericardial effusion. Atherosclerotic calcifications of thecoronary arteries and thoracic aorta. The thoracic aorta is normal incaliber. Pulmonary: There are new small bilateral pleural effusions. Pleuralplaquing is redemonstrated. No worrisome pulmonary nodules or activityare appreciated. Lymphatics: There is new left axillary and retropectoral hypermetaboliclymphadenopathy which is favored malignant. Abdomen and pelvis: Hepatobiliary: Hepatic steatosis. Hepatic cysts are redemonstrated. Noworrisome hepatic or pancreatic activity is noted. Liver parenchymademonstrates max SUV 3.24. Complex cystic lesion of the pancreatic headagain noted, better assessed on previous MRI. No significant biliaryductal dilatation is appreciated. : The adrenal glands are unremarkable. Small left lower pole renal cystagain noted. No hydronephrosis. The urinary bladder is incompletelydistended though with irregular wall thickening on the right which appearsto be new and is concerning for neoplasm (series 3, image 248 forexample). Prostate is present and demonstrates heterogeneous low-level tomild activity, decreased from prior. GI: Colonic diverticulosis without evidence of acute diverticulitis.Appendix is unremarkable. The stomach appears unremarkable. Probablephysiologic activity within loops of small bowel. No free intraperitonealfluid or air is appreciated. Lymphatics: The spleen is within normal limits in size though does appearto have enlarged since prior, may be treatment related. Prominent leftinguinal lymph node with low-level activity is unchanged. No developinglymphadenopathy is appreciated in the abdomen or pelvis. Vascular: Atherosclerotic calcifications with no abdominal aorticaneurysm. Musculoskeletal: Redemonstrated is widespread sclerotic osseous metastaticdisease of the axial and appendicular skeleton. This is similar to priorin CT appearance though has significantly worsened in the degree ofactivity, now with heterogeneous hypermetabolic activity throughout. IMPRESSION 1. Evidence of interval disease progression. 2. Widespread osseous metastatic disease has significantly worsened withincreased activity throughout. 3. Enlarging hypermetabolic lymph nodes in the neck and chest are favoredmalignant. 4. Concern for a new urinary bladder mass on the right. Recommendcystoscopy. 5. New small bilateral pleural effusions. 6. Pleural plaquing is redemonstrated. 7. Complex cystic pancreatic head lesion again noted, better assessed onMRI. 8. Heterogeneous low-level to mild prostatic activity, decreased fromprior. 9. Interval enlargement of the spleen, still within normal limits in size,potentially treatment related. Electronically signed by: YASMEEN JACKSON MD Date of Signature: 05/09/2024 11:44:38 Austyn Pelletier MD IMG PET Final Result * (ABNORMAL) CBC WITH AUTO DIFF [place] (02/29/2024 11:02 AM FACSIMILE OPERATOR) WBC 4.9 4.0 - 10.0 10*3/uL [facility] HGB 12.2(L) 13.7 - 17.5 g/dL [facility] HCT 37.8(L) 40.1 - 51.0 % [facility] PLT 161(L) 163 - 369 10*3/uL [facility] MPV 8.4(L) 9.4 - 12.4 fL [facility] RBC 4.42(L) 4.63 - 6.08 10*6/uL [facility] MCV 86 79 - 95 fL [facility] [facility] MCH 27.6 25.6 - 32.2 pg [facility] [facility] MCHC 32.3 32.2 - 36.5 g/dL [facility] [facility] RDW 17.2(H) 11.6 - 14.4 % [facility] Neutrophils % 69.9(H) 36.0 - 66.0 % [facility] Lymphocytes % 18.6(L) 19.0 - 40.0 % [facility] [facility] Monocytes % 7.8 4.1 - 12.1 % [facility] Eosinophils % 2.5 0.0 - 3.5 % [facility] [employer] [facility] Basophils % 0.4 0.0 - 1.0 % [facility] [employer] [facility] Absolute Neutrophils 3.4 1.4 - 6.6 10*3/uL [facility] [facility] Absolute Lymphocytes 0.9 0.8 - 4.0 10*3/uL [facility] [facility] Absolute Monocytes 0.4 0.2 - 1.2 10*3/uL [facility] [facility] Absolute Eosinophils 0.1 0.0 - 0.4 10*3/uL [facility] [facility] Absolute Basophils 0.0 0.0 - 0.1 10*3/ [facility] 02/29/2024 11:0 2 AM FACSIMILE OPERATOR Austyn Pelletier MD LAB SEND OUTS Final Result [facility] [facility] [place] [address], from Last 3 Months Insurance MEDICARE C BCBS PPO Care Teams Photoengraving Apprentice Relationship Specialty Start Date End Date Harris Hodge [address] [place] [address] PCP - General Family Medicine 12/01/21 José Goldman MD [address] [place] [address] Consulting Physician Oncology 12/01/21
--- OUTSIDE RECORDS SUMMARY | 2024-05-24 00:31 | XMS_ITS | Encounter Summary ---
Author Organization [facility] Address [address] [place] [address] Phone Care Team Providers Care Kiln Cleaner Name Role Phone Harris Hodge Primary Care Provider [phone] José Goldman MD Unavailable [phone] Reason for Visit * Reason Comments Medication Refill Encounter Details Date Type Department Care Team (Late st Contact Info) Description 06/14/2023 Refill [facility] [address] [phone] José Goldman MD [address] [address] Medication Refill Social History Tobacco Use Types Packs/Day Years Used Date Smoking Tobacco: Heavy Smoker Cigarettes Smokeless Tobacco: Never Alcohol Use Standard Drinks/Week Comments Never 0 (1 standard drink = 0.6 oz pur e alcohol) Sex and Gender Information Value Date Recorded Sex Assigned at Not on file Legal Sex Male 1:54 PM CDT Gender Identity Not on file Sexual Orientation Not on file documented as of this encounter Miscellaneous Notes * Telephone Encounter - Belen Morillo - 06/14/2023 7:36 AM CDT Please refill if appropriate. documented in this encounter Plan of Treatment Upcoming Encounters Date Type Department Care Team (Late st Contact Info) Description 05/26/2024 7:45 AM CDT Clinical Support [facility] [address] [address] Nurse, [facility] 05/26/2024 8:00 AM CDT Procedure Visit [facility] [address] [phone] José Goldman MD [address] [facility] [address] [address] documented as of this encounter Visit Diagnoses Diagnosis Prostate cancer (HCC) Malignant neoplasm of prostate documented in this encounter Care Teams Kiln Cleaner Relationship Specialty Start Date End Date Harris Hodge [address] [place] [address] PCP - General Family Medicine 12/01/21 José Goldman MD [address] [place] [phone] Consulting Physician Oncology 12/01/21 documented as of this encounter
--- OUTSIDE RECORDS SUMMARY | 2024-05-24 00:31 | XMS_ITS | Referral Summary ---
Author Organization [address] Address [address] [place] [phone] Care Team Providers Care Dietary Aide Name Role Phone Harris Hodge MD Primary Care Provider [phone] Allergies No known active allergies Medications dexAMETHasone (DECADRON) 4 mg tablet Take 2 tablets (8 mg total) by mouth 2 (two) times a day with meals 3 Active ergocalciferol (VITAMIN D) 50,000 unit capsule Take 1 capsule (50,000 Units total) by mouth once a week 3 Active ondansetron (ZOFRAN) 4 mg tablet Take 1 tablet (4 mg total) by mouth every 6 (six) hours as needed for nausea or vomiting 2 Active predniSONE (DELTASONE) 5 mg tablet Take 1 tablet (5 mg) by mouth 2 (two) times a day 3 Active prochlorperazin e (COMPAZINE) 10 mg tablet Take 1 tablet (10 mg total) by mouth every 4 (four) hours as needed for nausea or vomiting 2 Active tamsulosin (FLOMAX) 0.4 mg extended release capsule Take 1 capsule (0.4 mg total) by mouth daily 2 Active enzalutamide (Xtandi) 40 mg capsule Take 4 capsules (160 mg total) by mouth daily 2 Active azithromycin (ZITHROMAX) 250 mg tablet Take 2 tabs (500 mg) by mouth today, than 1 tab (250 mg) daily for 4 days. 6 tablet 4 Active albuterol HFA (PROVENTIL HFA,VENTOLIN HFA,PROAIR HFA) 90 mcg/actuation inhaler Inhale 2 puffs every 6 (six) hours as needed for wheezing or shortness of breath 1 each Active Active Problems No known active problems Social History Tobacco Use Types Packs/Day Years Used Date Smoking Tobacco: Never Assessed Sex and Gender Information Value Date Recorded Sex Assigned at Not on file Legal Sex Male 4:35 PM CDT Gender Identity Not on file Sexual Orientation Not on file Last Filed Vital Signs Vital Sign Reading Time Taken Comments Blood Pressure 122/76 03/16/2023 3:51 PM [facility] Pulse 111 03/16/2023 3:51 PM [facility] Temperature 37.2 C (98.9 F) 03/16/2023 3:51 PM [facility] Respiratory Rate 22 03/16/2023 3:51 PM [facility] Oxygen Saturation 96% 03/16/2023 3:51 PM [facility] Inhaled Oxygen Concentration - - Weight 88 kg (194 lb) 03/16/2023 3:51 PM [facility] Height 170.2 cm (5' 7 ) 03/16/2023 3:51 PM [facility] Body Mass Index 30.38 03/16/2023 3:51 PM [facility] Plan of Treatment Not on file [place] [address] [place] [id number] BCBS MEDICARE [place] Care Teams Dietary Aide Relationship Specialty Start Date End Date Harris Hodge MD [address] [place] [address] PCP - General Family Medicine 03/16/23
--- OUTSIDE RECORDS SUMMARY | 2024-05-24 00:31 | XMS_ITS | Clinical Summary ---
Author Organization [address] Address [address] [place] [phone] Care Team Providers Care Felt Pad Cutter Name Role Phone Harris Hodge MD Primary Care Provider Allergies No known active allergies Medications dexAMETHasone [...] on file Sexual Orientation Not on file Obstetrics History Last Filed Vital Signs Vital Sign Reading Time Taken Comments Blood Pressure 122/76 03/16/2023 3:51 PM [facility]OR [facility] Pulse 111 03/16/2023 3:51 PM DIRECTOR [facility] Temperature 37.2 C (98.9 F) 03/16/2023 3:51 PM [facility]OR [facility] Respiratory Rate 22 03/16/2023 3:51 PM [facility]OR [facility] Oxygen Saturation 96% 03/16/2023 3:51 PM [facility]OR [facility] Inhaled Oxygen Concentration - - Weight 88 kg (194 lb) 03/16/2023 3:51 PM DIRECTOR [facility] Height 170.2 cm (5' 7 ) 03/16/2023 3:51 PM [facility]OR [facility] Body Mass Index 30.38 03/16/2023 3:51 PM DIRECTOR [facility]IS Plan of Treatment Health Maintenance Due Date Last Done Comments Colon Cancer Screening-Colonoscopy 1955 Depression Screening 1955 Fall Risk Assessment 1955 Hepatitis C Screening 1955 DTaP/Tdap/Td Vaccine (1 - Tdap) 1964 Hepatitis B Screening 07/07/1971 Zoster Vaccine (1 of 2) 1972 Abdominal Aortic Aneurysm (A AA) Screen 2018 Well Visit 65+ 2018 Pneumococcal vaccine 65+ (2 of 2 - PPSV23) 02/10/2021 12/16/2020 Covid-19 Vaccine ( - 2023-2 5 season) 2023 08/22/2021, 12/16/2020, 05/28/2020, Additional history exists Influenza Vaccine (#1) 2023 , 12/03/2019, 12/18/2018, Additional [place] [address] BCBS MEDICARE [place] Care Teams Felt Pad Cutter Relationship Specialty Start Date End Date Harris Hodge MD [address] [place], [place] [id number] PCP - General Family Medicine 03/16/23
--- OUTSIDE RECORDS SUMMARY | 2024-05-24 00:32 | XMS_ITS | Clinical Summary ---
Author Organization [facility] [place] [facility] Address [address] [place] [address] Care Team Providers Care Awning Maker And Installer Name Role Phone Harris Hodge MD Primary Care Provider [phone] Hardy Plata DO Unavailable [phone] Austyn Pelletier MD Unavailable Allergies No known active allergies Medications azelastine (ASTELIN) 0.1 % nasal spray 2 sprays by Tube route daily. 4 Active Vitamin D3 (VITAMIN D) 50 mcg tablet Take 1 tablet (50 mcg total) by mouth daily. Active Calcium Citrate-Vitamin D 250-5 MG-MCG Tab Take 1 tablet by mouth daily. Active furosemide (LASIX) 40 MG tablet Take 1 tablet (40 mg total) by mouth every other day. Until swelling on legs goes down Active cholestyramine (QUESTRAN) 4 G packet Take 1 packet (4 g total) by mouth as needed. 3 Active dexamethasone (DECADRON) 4 MG tablet Take 2 tablets (8 mg total) by mouth 2 (two) times a day. Only takes with chemo treatments 3 Active HYDROcodone-janell taminophen (NORCO) 5-325 MG tablet Take 1 tablet by mouth every 8 (eight) hours as needed for Pain. 4 Active potassium chloride CR (KLOR-CON M) 20 MEQ tablet Take 1 tablet (20 mEq total) by mouth every other day. With lasix Active predniSONE (DELTASONE) 5 mg tablet Take 1 tablet (5 mg total) by mouth daily. 3 Active tamsulosin (FLOMAX) 0.4 MG Cap Take 1 capsule (0.4 mg total) by mouth nightly. 4 Active Active Problems No known active problems Encounters Date Type Department Care Team Description 05/09/2024 11:57 AM DIP FILLER - 05/09/2024 11:59 PM DIP FILLER Hospital Encounter [facility] Radiation Oncology [address] [place] [address] [place] [address] Austyn Pelletier MD Follow Up Discharge Disposition: Home or Self Care (Routine Discharge) 05/09/2024 Travel 05/06/2024 Orders Only [facility] Oncology [address] [place] [address] [place] [address] Austyn Pelletier MD 05/02/2024 9:55 AM DIP FILLER - 05/02/2024 11:59 PM DIP FILLER Hospital Encounter [facility] Diagnostic Imaging [facility] [place] [address] José Goldman MD Discharge Disposition: Home or Self Care (Routine Discharge) 05/02/2024 Travel 04/18/2024 10:22 AM DIP FILLER - 04/18/2024 11:59 PM DIP FILLER Hospital Encounter [facility] Oncology [address] [place] [address] [place] [address] Austyn Pelletier MD Follow Up Discharge Disposition: Home or Self Care (Routine Discharge) 04/14/2024 Telephone [facility] Radiation Oncology [address] [place] [address] [place] [address] Austyn Pelletier MD Information 04/10/2024 Telephone [facility] Radiation Oncology [address] [place] [address] [place] [address] Austyn Pelletier MD Reschedule 03/07/2024 10:47 AM DIP FILLER - 03/07/2024 11:59 PM DIP FILLER Hospital Encounter [facility] Radiation Oncology [address] [place] [address] [place] [address] Austyn Pelletier MD Follow Up Discharge Disposition: Home or Self Care (Routine Discharge) 03/07/2024 Travel from Last 3 Months Family History Medical History Relation Comments Diabetes Brother type 2 Heart Disease Brother a fib Relation Status Comments Brother Social History Tobacco Use Types Packs/Day Years Used Date Smoking Tobacco: Every Day Cigarettes 0.5 50.2 Started: 1976 Smokeless Tobacco: Never Tobacco Cessation:Ready to Q uit: Not Asked; Counseling Given: Not Answered Alcohol Use Standard Drinks/Week Comments Not Currently 0 (1 standard drink = 0.6 oz pur e alcohol) none in 20 years Sex and Gender Information Value Date Recorded Sex Assigned at Male 05/02/2024 9:47 AM DIP FILLER Legal Sex Male 2:21 PM CDT Gender Identity Not on file Sexual Orientation Not on file Last Filed Vital Signs Vital Sign Reading Time Taken Comments Blood Pressure 133/62 05/09/2024 12:13 PM DIP FILLER Pulse 96 05/09/2024 12:13 PM DIP FILLER Temperature 36.1 C (97 F) 08/21/2023 11:55 AM CDT Respiratory Rate 16 08/21/2023 11:55 AM CDT Oxygen Saturation 97% 05/09/2024 12:13 PM DIP FILLER Inhaled Oxygen Concentration - - Weight 77.8 kg (171 lb 9.6 oz) 05/09/2024 12:13 PM DIP FILLER Height 170.2 cm (5' 7 ) 05/09/2024 12:13 PM DIP FILLER Body Mass Index 26.88 05/09/2024 12:13 PM DIP FILLER Plan of Treatment Health Maintenance Due Date Last Done Comments Colorectal Cancer Screening Colonoscopy (10 Years) 1955 Hepatitis C 07/07/1971 DTaP, Tdap and Td Vaccines (1 - Tdap) 1972 Zoster Vaccines (1 of 2) 07/07/2003 Annual Medicare Wellness Visit 2018 COVID-19 Vaccine ( season) 2023 08/22/2021, 12/16/2020, 05/28/2020, Additional history exists Pneumococcal Vaccine: 65+ Years Completed 01/01/2022, 12/16/2020 RSV Immunization or 60+ Years Completed 12/12/2022 Influenza Adult Completed 01/03/2024, 11/11, 12/18/2018, Additional history exists AAA SCREENING Completed 05/09/2024, 12/12, 08/23/2023, Additional history exists Meningococcal B Vaccine Aged Out No l onger eligible based on patient's age to complete this topic Meningococcal Vaccine Aged Out No peg tank eligible based on patient's age to complete this topic RSV Immunizations Under 20 Months Aged Out No longer eligible based on patient's age to complete this topic Medical Devices Implanted Type Area Customer Security Clerk Device Identifier Shelf Expiration Date Model / Serial / Lot Catheter Power Port Mri Implanted 8fr - [id number] Implanted:Qty: 1 on 08/21/2023 by Serge Busch DO at [facility] Port Right: Chest [employer] 05/09/2025 [id number] / / [id number] Procedures Procedure Name Priority Date/Time Associated Diagnosis Comments XR HUMERUS LT MIN 2V Routine 05/02/2024 10:20 AM DIP FILLER Prostate cancer ([facility]) from Last 3 Months Results * XR HUMERUS LT MIN 2V (05/02/2024 10:20 AM DIP FILLER) Anatomical Region Laterality Modality Humerus Radiographic Jenna ging 05/03/2024 9:54 AM DIP FILLER Impressions 05/03/2024 9:56 AM DIP FILLER =====IMPRESSION:===== 1. No acute osseous abnormality. 2. Findings consistent with skeletal metastatic disease. Ordered By: JOSÉ GOLDMAN Interpreted By: Jose Rhodes MD, 05/03/2024 9:54 AM Narrative 05/03/2024 9:56 AM DIP FILLER [address] [address] Examination: 2 views left humerus Exam date/time: 05/02/2024 10:05 AM Reason For Exam: Prostate cancer Recent injury carrying luggage. Comparison: No prior exam Technique: AP and lateral radiographs of the left humerus Findings: Glenohumeral and elbow joint relationships appear unremarkable. No findings suggestive of fracture or acute osseous abnormality throughout the right humerus. There is mixed lytic and sclerotic change throughout the right humerus with a predominance within the right humeral head and proximal humeral shaft. Radiographic appearance would be consistent with skeletal metastatic disease. There also appears to be mixed lytic and sclerotic change within the left distal clavicle suggestive of metastatic disease. Procedure Note Jose Rhodes MD - 05/03/[address] [address] Examination: 2 views left humerus Exam date/time: 05/02/2024 10:05 AM Reason For Exam: Prostate cancer Recent injury carrying luggage. Comparison: No prior exam Technique: AP and lateral radiographs of the left humerus Findings: Glenohumeral and elbow joint relationships appear unremarkable.No findings suggestive of fracture or acute osseous abnormality throughoutthe right humerus. There is mixed lytic and sclerotic change throughoutthe right humerus with a predominance within the right humeral head andproximal humeral shaft. Radiographic appearance would be consistent withskeletal metastatic disease. There also appears to be mixed lytic andsclerotic change within the left distal clavicle suggestive of metastaticdisease. =====IMPRESSION:===== 1. No acute osseous abnormality. 2. Findings consistent with skeletal metastatic disease. Ordered By: JOSÉ GOLDMAN Interpreted By: Jose Rhodes MD, 05/03/2024 9:54 AM us José Goldman MD GENERAL IMAGING Final Result from Last 3 Months Insurance [facility] Care Teams Awning Maker And Installer Relationship Specialty Start Date End Date Harris Hodge MD [address] [place] [address] PCP - General FAMILY PRACTICE 12/20/21 Hardy Plata DO [address] [place] [phone] Consulting Physician INTERNAL MEDICINE 09/14/23 Austyn Pelletier MD [address] [place], [place] [id number] Consulting Physician RADIATION ONCOLOGY 01/10/24
--- OUTSIDE RECORDS SUMMARY | 2024-05-24 00:32 | XMS_ITS | Clinical Summary ---
Author Organization [facility] [employer] Address [address] [facility] [place] [address] Care Team Providers Care Accountant Clerk Name Role Phone Harris Hodge MD Primary Care Provider Source Comments [facility] [employer],non-owned Affiliates and Associated Physician Practices is amultiple site organization consisting of ambulatory clinics and hospital sitesin [place], [place], [place] and [place]. This disclosure is being madepursuant to the Care Everywhere program and may not contain all information available regarding this patient. Last updated 17.[facility] [employer] Allergies No known active allergies Medications * Be aware that medications may not be up to date on this document. Alwaysverify current medications with the patient. Medication Sig Dispensed Refills Start Date End Date Status Xtandi 40 MG capsule 01/09/2022 Acti ve furosemide (Lasix) 20 MG tablet Take 1 (one) tablet by mouth once daily 01/26/2022 Active potassium chloride ER (Klor-Con M) 20 MEQ tablet Take 1 (one) tablet by mouth once daily 01/26/2022 Active HYDROcodone-acetamino phen ([place]) 5-325 MG tablet TAKE 1 TABLET BY MOUTH EVERY 8 HOURS NEEDED FOR MODERATE TO SEVERE PAIN 01/13/2022 Active ondansetron (Zofran) 4 MG tablet TAKE 1 TABLET BY MOUTH EVERY 6 HOURS NEEDED FOR NAUSEA - 1ST LINE FOR UP TO 28 DAYS 12/09/2021 Active tamsulosin (Flomax) 0.4 MG capsule Take 1 (one) capsule by mouth once daily 01/26/2022 Active polyethylene glycol 3350 (Miralax) 17 GM/SCOOP powder Take 17 (seventeen) g by mouth once daily 12/02/2021 Active prochlorperazine (Compazine) 10 MG tablet TAKE 1 TABLET BY MOUTH EVERY 4 HOURS NEEDED FOR NAUSEA 12/09/2021 Active Social History Tobacco Use Types Packs/Day Years Used Date Smoking Tobacco: Every Day Cigarettes 0.5 35 Smokeless Tobacco: Never Tobacco Cessation:Ready to Q uit: Not Asked; Counseling Given: Not Answered Alcohol Use Standard Drinks/Week Comments Not Currently 0 (1 standard drink = 0.6 oz pur e alcohol) Sex and Gender Information Value Date Recorded Sex Assigned at Not on file Gender Identity Not on file Sexual Orientation Not on file Last Filed Vital Signs Vital Sign Reading Time Taken Comments Blood Pressure 133/69 02/10/2022 12:15 PM VISUALIZER Pulse 61 02/10/2022 12:15 PM VISUALIZER Temperature 36.5 C (97.7 F) 02/10/2022 11:47 AM VISUALIZER Respiratory Rate 13 02/10/2022 12:15 PM VISUALIZER Oxygen Saturation 100% 02/10/2022 12:15 PM VISUALIZER Inhaled Oxygen Concentration - - Weight 79 kg (174 lb 3.2 oz) 02/10/2022 10:21 AM VISUALIZER Height 170.2 cm (5' 7 ) 02/10/2022 10:21 AM VISUALIZER Body Mass Index 27.28 02/10/2022 10:21 AM VISUALIZER Plan of Treatment Health Maintenance Due Date Last Done Comments COLOGUARD (AGES 45-75) - COLON CA SCREENING 1955 COLON MONITORING 1955 COLONOSCOPY - COLON CA SCREENING 1955 CT COLONOGRAPHY - COLON CA SCREENING 1955 Colorectal Cancer Screening 1955 FIT - COLON CA SCREENING 1955 FLEX SIG - COLON CA SCREENING 1955 LIPID TESTING 1955 MEDICARE AWV 12 MONTHS 1955 HEPATITIS C SCREENING 07/02/1971 DTAP/TDAP/TD VACCINES (1 - Tdap) 1972 PNEUMOCOCCAL VACCINE 50+ (1 of 2 - PCV) 1972 ZOSTER VACCINE (1 of 2) 07/07/2003 AAA SCREENING 2018 COVID-19 VACCINE (5 - season) 2023 08/22/2021, 12/16/2020, 05/28/2020, Additional history exists INFLUENZA VACCINE (#1) 2023 12/03/2019, 2018 DEPRESSION SCREENING 03/12/2024 Respiratory Syncytial Virus (RSV) Vaccine Pt: or over 60 yrs (1 - 1-dose 75+ series) 2028 HEPATITIS B VACCINE Aged Out No longe r eligible based on patient's age to complete this topic HIB VACCINE Aged Out No longer eligi ble based on patient's age to complete this topic HPV VACCINE Aged Out No longer eligi ble based on patient's age to complete this topic MENINGOCOCCAL (Group B) VACCINE SHARED DECISION-MAKING Aged Out No longer eligible based on patient's age to complete this topic MENINGOCOCCAL GROUPS A/C/Y/W VACCINE Aged Out No longer eligible based on patient's age to complete this topic Care Teams Accountant Clerk Relationship Specialty Start Date End Date Harris Hodge MD [address] [place] [phone] PCP - General Family Medicine 02/10/22
--- OUTSIDE RECORDS SUMMARY | 2024-05-24 00:32 | XMS_ITS | Encounter Summary ---
Author Organization [facility] Address [address] [place] [address] Phone Care Team Providers Care Field Services Manager Name Role Phone Harris Hodge Primary Care Provider [phone] José Goldman MD Unavailable [phone] Reason for Visit * Reason Comments Medication Refill Encounter Details Date Type Department Care Team (Late st Contact Info) Description 05/24/2022 Refill [facility] [address] [phone] José Goldman MD [facility] [address] [address] Medication Refill Social History Tobacco [...] on file Sexual Orientation Not on file COVID-19 Exposure Response Date Recorded In the last 10 days, have yo u been in contact with someone who was confirmed or suspected to have Coronavirus/COVID-19? No / Unsure 05/26/2022 8:57 AM CDT documented as of this encounter Functional Status * Question Answer Date of Assessment Author Little interest or pleasure in doing things Not at all 05/26/2022 10:38 AM CDT Anjum Mcdanielsa A, RMA Feeling down, depressed, or hopeless Not at all 05/26/2022 10:38 AM CDT Anjum Mcdanielsa A, RMA * Over the past 2 weeks, how often have you been bothered by any of the following problems? Question Answer Date of Assessment Author Patient Health Questionnaire -2 Score 0 05/26/2022 10:38 AM CDT Anjum Mcdanielsa A, RMA documented as of this encounter Miscellaneous Notes * Telephone Encounter - Belen Morillo - 05/24/2022 3:38 PM CDT Please refill if appropriate. documented in this encounter Plan of Treatment Upcoming Encounters Date Type Department Care Team (Late st Contact Info) Description 05/26/2024 7:45 AM CDT Clinical Support [facility] [address] [phone] Nurse, Cc [facility] 05/26/2024 8:00 AM CDT Procedure Visit [facility] [address] [phone] José Goldman MD [address] [facility] [address] [address] documented as of this encounter Visit Diagnoses Not on filedocumented in this encounter Care Teams Field Services Manager Relationship Specialty Start Date End Date Harris Hodge [address] [place] [address] PCP - General Family Medicine 12/01/21 José Goldman MD [address] [place] [phone] Consulting Physician Oncology 12/01/21 documented as of this encounter
--- OUTSIDE RECORDS SUMMARY | 2024-05-24 00:32 | XMS_ITS | Patient Health Summary ---
Author Organization [facility] [employer] Address [address] [facility] [place] [address] Care Team Providers Care Resin Maker Name Role Phone Harris Hodge MD Primary Care Provider [phone] Note from [facility],non-owned Affiliates and Associated Physician Practices is amultiple site organization consisting of ambulatory clinics and hospital sitesin [place], [place], [place] and [place]. This disclosure is being madepursuant to the Care Everywhere program and may not contain all information available regarding this patient. Last updated 17.[facility] Allergies No known active allergies Medications * Be aware that medications may not be up to date on this document. Alwaysverify current medications with the patient. * Xtandi 40 MG capsule(Started 01/09/2022) * furosemide (Lasix) 20 MG tablet(Started 01/26/2022) Take 1 (one) tablet by mouth once daily * potassium chloride ER (Klor-Con M) 20 MEQ tablet(Started 01/26/2022) Take 1 (one) tablet by mouth once daily * HYDROcodone-acetaminophen ([place]) 5-325 MG tablet(Started 01/13/2022) TAKE 1 TABLET BY MOUTH EVERY 8 HOURS NEEDED FOR MODERATE TO SEVERE PAIN * ondansetron (Zofran) 4 MG tablet(Started 12/09/2021) TAKE 1 TABLET BY MOUTH EVERY 6 HOURS NEEDED FOR NAUSEA - 1ST LINE FOR UP TO 28 DAYS * tamsulosin (Flomax) 0.4 MG capsule(Started 01/26/2022) Take 1 (one) capsule by mouth once daily * polyethylene glycol 3350 (Miralax) 17 GM/SCOOP powder(Started 12/02/2021) Take 17 (seventeen) g by mouth once daily * prochlorperazine (Compazine) 10 MG tablet(Started 12/09/2021) TAKE 1 TABLET BY MOUTH EVERY 4 HOURS NEEDED FOR NAUSEA Social History Tobacco Use Types Packs/Day Years [...] Comments Blood Pressure 133/69 02/10/2022 12:15 PM INTERNATIONAL PROJECT ENGINEER Pulse 61 02/10/2022 12:15 PM INTERNATIONAL PROJECT ENGINEER Temperature 36.5 C (97.7 F) 02/10/2022 11:47 AM INTERNATIONAL PROJECT ENGINEER Respiratory Rate 13 02/10/2022 12:15 PM INTERNATIONAL PROJECT ENGINEER Oxygen Saturation 100% 02/10/2022 12:15 PM INTERNATIONAL PROJECT ENGINEER Inhaled Oxygen Concentration - - Weight 79 kg (174 lb 3.2 oz) 02/10/2022 10:21 AM INTERNATIONAL PROJECT ENGINEER Height 170.2 cm (5' 7 ) 02/10/2022 10:21 AM INTERNATIONAL PROJECT ENGINEER Body Mass Index 27.28 02/10/2022 10:21 AM INTERNATIONAL PROJECT ENGINEER Procedures * FINE NEEDLE ASPIRATION (STL)(Performed 02/10/2022) Performed for Pancreatic mass (HCC) * PATHOLOGY TISSUE(Performed 02/10/2022) Performed for Pancreatic mass (HCC) * ESOPHAGOGASTRODUODENOSCOPY (EGD) /ESOPHAGOSCOPY WITH ULTRASOUND (EUS) (Performed 02/10/2022) Performed for Pancreatic mass (HCC) * ENDOSCOPIC ULTRASONOGRAPHY, GI(Performed 02/10/2022) Results * FINE NEEDLE ASPIRATION (STL) (02/10/2022 12:02 PM INTERNATIONAL PROJECT ENGINEER) Case Report Medical Cytology Report Case: [id number] Authorizing Provider: Bret Garcia, Collected: 02/10/2022 12:02 PM Ordering Location: [facility] Received: 02/10/2022 12:38 PM Pathologist: Jamil Vasquez MD Specimen: Pancreatic Cyst Fluid 02/13/2022 11:32 AM INTERNATIONAL PROJECT ENGINEER [facility] Specimen Adequacy Adequate cellularity for evaluation. 02/13/2022 11:32 AM [facility] Final Diagnosis Pancreatic cyst, EUS-FNA: - Rare degenerated epithelium and mucin (see comment) - No high grade dysplasia 02/13/2022 11:32 AM [facility] Amendment electronically signed by Jamil Vasquez MD on 02/13/2022 at 11:32 AM Gross Description 1 pap stained slide and 1 cell block from 10cc slight bloody saline 02/13/2022 11:32 AM [facility] Microscopic Description Microscopic examination substantiates the final diagnosis. The cell block shows abundant mucinous epithelium with low-grade atypia. Comment: In the appropriate clinical and radiological context, the findings would be compatible with a neoplastic mucin-producing cyst. Please correlate with CEA and amylase levels. 02/13/2022 11:32 AM [facility] Disclaimer The performance characteristics of all immunohistochemical and indirect immunofluorescence stains (if any) cited in this report were determined by the [facility]opathology Laboratory of [facility]. Some of these tests rely on the use of analyte-specific reagents and are subject to specific labeling requirements by the US Food and Drug Administration. Such tests were developed by the [facility] Laboratory of [facility] and have not been cleared or approved by the FDA. The FDA has determined that such clearance and approval is not necessary. These tests are used for clinical purposes and should not be regarded as investigational or for research. This laboratory is certified under the Clinical Laboratory Improvement Amendments (CLIA) as qualified to perform high complexity clinical laboratory testing. This case has been personally reviewed and interpreted by the attending (teaching) pathologist. 02/13/2022 11:32 AM [facility] Embedded Images 02/13/2022 11:32 AM [facility] Pathology/Cytolo gy (Pancreatic Cyst Fluid) Collection / Unknown 02/10/2022 12:02 PM INTERNATIONAL PROJECT ENGINEER 02/10/2022 12:38 PM INTERNATIONAL PROJECT ENGINEER Bret Santiago MD LAB - PATHOL OGY/CYTOLOGY ORDERABLES [facility] [address] [place] [place] [id number] [place] [address] * PATHOLOGY TISSUE (02/10/2022 11:30 AM [facility]) Case Report Surgical Pathology Report Case: [id number] Authorizing Provider: Bret Garcia, Collected: 02/10/2022 11:30 AM Ordering Location: [facility] Received: 02/10/2022 12:38 PM Pathologist: Saige Dixon MD Specimen: Pancreas Biopsy, pancreatic cyst- FNA 02/13/2022 12:11 PM [facility] Final Diagnosis Pancreas, cyst, fine-needle biopsy (A): - Abundant bland mucinous epithelium and scant fibrotic stroma, consistent with intraductal papillary mucinous neoplasm - See comment 02/13/2022 12:11 PM [facility] Microscopic Description and Comment The pancreatic cyst biopsy is several small fragments of tissue comprising strips of bland mucinous epithelium, focally with bland fibrotic stroma underlying; there is no cellular ovarian-type stroma present. Much of the epithelium is detached and free-floating. Throughout the many fragments of epithelium, the nuclei appear well polarized and basally located, without significant pleomorphism, marked mitotic activity, or other high-grade nuclear features. In the few fragments of stroma present, there is no desmoplasia or features of invasive growth. In the correct clinical setting, the findings in this biopsy (if adequately sales representative meats of the lesion overall) would support a diagnosis of low-grade intraductal papillary mucinous neoplasm. However, this is only a small sampling and clinical correlation is recommended. 02/13/2022 12:11 PM [facility] Clinical History The patient is a 66-year-old male who presented with suspected cystic pancreatic neoplasm. The operative procedure/findings: Upper EUS: 35.5 x 21 mm head of pancreatic cyst lesion with thick septation, small cystic compartments, main pancreatic ductal communication and associated diffuse dilation of the main pancreatic duct measuring up to 5 mm at the head of pancreas. FNB x 3 performed. 02/13/2022 12:11 PM [facility] Gross Description The requisition and specimen(s) are identified with the patient's name Miguel Mcknight. Received in formalin, specimen A , is a 2.5 x 0.6 x 0.1 cm aggregate of perez to reddish-brown hemorrhagic tissue cores, placed in a biopsy bag and entirely submitted in cassette A1. DF 02/13/2022 12:11 PM [facility] Disclaimer The performance characteristics of all immunohistochemical and indirect immunofluorescence stains (if any) cited in this report were determined by the [facility] of [facility]. Some of these tests were developed by our own laboratory and have not been cleared or approved by the US Food and Drug Administration. The FDA does not require this test to go through premarket FDA review. These tests are used for clinical purposes. They should not be regarded as investigational or for research. This laboratory is certified under the Clinical Laboratory Improvement Amendments (CLIA) as qualified to perform high complexity clinical laboratory testing. This case has been personally reviewed and interpreted by the attending (teaching) pathologist. 02/13/2022 12:11 PM [facility] Embedded Images 02/13/2022 12:11 PM [facility] Biopsy, Needle BIOPSY OF PANCREAS / Unknown 02/10/2022 11:30 AM INTERNATIONAL PROJECT ENGINEER 02/10/2022 12:38 PM INTERNATIONAL PROJECT ENGINEER Comment:Pre-op diagnosis: Pancreatic mass [K86.89] Bret Santiago MD LAB - PATHOL OGY/CYTOLOGY ORDERABLES Performing Organization Address City/State/[facility] Co de Phone Number [facility] [address] [phone] * ENDOSCOPIC ULTRASONOGRAPHY, GI (02/10/2022 10:37 AM INTERNATIONAL PROJECT ENGINEER) Report Endoscopy POC Endoscopy Department Report _ Patient Name: Miguel Mcknight Procedure Date: 02/10/2022 10:37 AM Date of : 1955 Classification: Outpatient Gender: Male Ethnicity: Not or Race: White _ Providers: Bret Santiago MD Referring MD: José Goldman MD Procedure: Upper EUS Indications: Suspected cystic pancreatic neoplasm Medications: See the Anesthesia note for documentation of the administered medications IVFs w/ LR, Ciprofloxacin 400 mg IV x1 Patient Profile: 66M w/ prostate cancer w/ bone and possible LN metastases, presents as direct referral for EUS for further evaluation of pancreas lesion. 12/2021 abdominal MRI w/woc revealed a 3.3 cm multiseptated cystic lesion in the head of pancreas suspicious for a serous cystadenoma vs IPMN (no abnormal uptake on recent PET), otherwise small simple appearing cysts were seen in the liver and bilateral kidneys. Note patient w/ elevated ALP attributed to prostate cancer and bone mets, TBil otherwise unremarkable. Description of Procedure: After obtaining informed consent, the endoscope was passed under direct vision. Throughout the procedure, the patient's blood pressure, pulse, and oxygen saturations were monitored continuously. The [id number] was introduced through the mouth, and advanced to the second part of duodenum. The upper EUS was accomplished without difficulty. The patient tolerated the procedure well. Findings: ENDOSONOGRAPHIC FINDING: : The stomach, duodenum and adjacent structures were visualized endosonographical ly. The visualized portion of the liver (left lobe) demonstrated several cysts, measuring up to 15 mm in cross-sectional diameter. No associated masses or nodules were present. There was no sign of significant endosonographic abnormality in the main extrahepatic bile duct. The maximum diameter of the duct was 4 mm. No main bile duct stones were present. The pancreas was carefully examined. One 35.5 x 21 mm cystic lesion with thick septations and small cystic compartments was identified in the head of pancreas. No masses or mural nodules were present. There was obvious main pancreatic ductal communication. The main pancreatic duct was diffusely dilated, measuring up to 5 mm in diameter at the head, and tapered smoothly towards the tail. The remainder of the pancreas was normal appearing. No pancreatic masses or other cysts were present. The decision was made to perform EUS-guided sampling of the head of pancreas cystic lesion. Color Doppler imaging was utilized prior to needle puncture to confirm a lack of significant vascular structures within the needle path. Three passes were made with a 22 gauge PeriGen biopsy needle using a transduodenal approach. A visible core of tissue was obtained. Final results are pending. Cyst fluid aspiration for analysis could not be performed due to small size of the cystic compartments. No abnormal lymph nodes were visualized in the peripancreatic, portahepatis or celiac axis region. ENDOSCOPIC FINDING: : Direct sideview examination of the ampullary region was unremarkable. No fish mouth papillary changes were present. Estimated Blood Loss: Estimated blood loss was minimal. Complications: No immediate complications. Impression: - One 35.5 x 21 mm head of pancreas cystic lesion with thick septations, small cystic compartments, main pancreatic ductal communication and associated diffuse dilation of the main pancreatic duct measuring up to 5 mm at the head of pancreas. 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 FNB x3 performed. Cyst fluid aspiration not performed due to small size of the cystic compartments. - Normal endoscopic and endosonographic exam of the ampullary region. No fish mouth papillary changes present. - Visualized portion of the liver (left lobe) with multiple simple cysts. Moderate Sedation: MAC Recommendation: - Resume previous diet. - Hold any anticoagulant medications (blood thinners) for 24 hours. Resume rest of home medications today. - Follow-up biopsy results. Further management accordingly. - Follow-up with the referring providers. If biopsy results are benign, recommend repeat MRI/MRCP with contrast in 3 months. - The potential complications and concerning symptoms/findings, including but not limited to early or delayed fevers, infection, pain, bleeding, perforation, and pancreatitis were discussed with the patient/caregiver. Emergency contact information was provided. Attending Participation: I personally performed the entire procedure. Procedure Code(s): --- Professional --- 63707, Esophagogastroduod enoscopy, flexible, transoral; with transendoscopic ultrasound-guided intramural or transmural fine needle aspiration/biopsy (s) (includes endoscopic ultrasound examination of the esophagus, stomach, and either the duodenum or a surgically altered stomach where the jejunum is examined distal to the anastomosis) Diagnosis Code(s): --- Professional --- K76.89, Other specified diseases of liver K86.2, Cyst of pancreas CPT copyright 2019 [employer]. All rights reserved. The codes documented in this report are preliminary and upon aqueduct and reservoir keeper review may be revised to meet current compliance requirements. Bret Santiago MD 02/10/2022 11:59:35 AM Note Initiated On: 02/10/2022 10:37 AM Number of Addenda: [id number] [place] [address] 02/10/2022 10:3 7 AM INTERNATIONAL PROJECT ENGINEER Bret Santiago MD GI PROCEDURE ORDERABLES [facility] Care Teams Resin Maker Relationship Specialty Start Date End Date Harris Hodge MD [address] [place] [address] PCP - General Family Medicine 02/10/22
--- OUTSIDE RECORDS SUMMARY | 2024-05-24 00:32 | XMS_ITS | Referral Summary ---
Author Organization [facility] [employer] Address [address] [place] [address] Care Team Providers Care Treasury Accountant Name Role Phone Harris Hodge MD Primary Care Provider [phone] Source Comments [facility],non-owned Affiliates and Associated Physician Practices is amultiple site organization consisting of ambulatory clinics and hospital sitesin [place], [place], [place] and [place]. This disclosure is being madepursuant to the Care Everywhere program and may not contain all information available regarding this patient. Last updated 17.[facility] Allergies No known active allergies Medications * [...] mouth once daily 01/26/2022 Active HYDROcodone-acetamino phen ([place]) 5-325 MG tablet TAKE 1 TABLET BY [...] Comments Blood Pressure 133/69 02/10/2022 12:15 PM INFORMATION SPECIALIST Pulse 61 02/10/2022 12:15 PM INFORMATION SPECIALIST Temperature 36.5 C (97.7 F) 02/10/2022 11:47 AM INFORMATION SPECIALIST Respiratory Rate 13 02/10/2022 12:15 PM INFORMATION SPECIALIST Oxygen Saturation 100% 02/10/2022 12:15 PM INFORMATION SPECIALIST Inhaled Oxygen Concentration - - Weight 79 kg (174 lb 3.2 oz) 02/10/2022 10:21 AM INFORMATION SPECIALIST Height 170.2 cm (5' 7 ) 02/10/2022 10:21 AM INFORMATION SPECIALIST Body Mass Index 27.28 02/10/2022 10:21 AM INFORMATION SPECIALIST Functional Status Functional Status Response Date of Assess ment Is person deaf or have serious hearing difficult y? No 02/10/2022 Is person blind or have serious difficulty seein g? No 02/10/2022 Does person have serious dif ficulty walking/climbing stairs? No 02/10/2022 Does person have difficulty dressing/bathing? No 02/10/2022 Does person have difficulty doing errands alone? No 02/10/2022 Cognitive Status Response Date of Assessm ent Does person have difficulty concentrating/remembering/making decisions? No 02/10/2022 Plan of Treatment Not on file Care Teams Treasury Accountant Relationship Specialty Start Date End Date Harris Hodge MD [address] [place] [phone] PCP - General Family Medicine 02/10/22
--- OUTSIDE RECORDS SUMMARY | 2024-05-24 00:32 | XMS_ITS | Encounter Summary ---
Author Organization [facility] Address [address] [place] [address] Phone Care Team Providers Care Hired Hand Name Role Phone Harris Hodge Primary Care Provider [phone] José Goldman MD Unavailable [phone] Reason for Visit * Reason Comments Medication Refill Encounter Details Date Type Department Care Team (Late st Contact Info) Description 10/31/2022 Refill [facility] [address] [phone] José Goldman MD [facility] [address] [address] Medication Refill Social History Tobacco [...] suspected to have Coronavirus/COVID-19? No / Unsure 10/19/2022 10:31 AM CDT documented as of this encounter Miscellaneous Notes * Telephone Encounter - Belen Morillo - 10/31/2022 9:34 AM CDT Please refill if appropriate. documented in this encounter Plan of Treatment Upcoming Encounters Date Type Department Care Team (Late st Contact Info) Description 05/26/2024 7:45 AM CDT Clinical Support [facility] [address] [phone] Nurse, Cc [facility] 05/26/2024 8:00 AM CDT Procedure Visit [facility] [address] [phone] José Goldman MD [address] [facility] [address] [id number] documented as of this encounter Visit Diagnoses Diagnosis Prostate cancer (HCC) Malignant neoplasm of prostate documented in this encounter Care Teams Hired Hand Relationship Specialty Start Date End Date Harris Hodge [address] [place] [address] PCP - General Family Medicine 12/01/21 José Goldman MD [address] [place] [phone] Consulting Physician Oncology 12/01/21 documented as of this encounter
--- OUTSIDE RECORDS SUMMARY | 2024-05-24 00:32 | XMS_ITS | Encounter Summary ---
Author Organization [facility] Address [address] [place] [address] Phone Care Team Providers Care Oral Surgery Assistant Name Role Phone Harris Hodge Primary Care Provider [phone] José Goldman MD Unavailable [phone] Reason for Visit * Reason Comments Medication Refill Encounter Details Date Type Department Care Team (Late st Contact Info) Description 03/27/2022 Refill [facility] [address] [phone] José Goldman MD 1052 [facility] [address] [address] Medication Refill Social History Tobacco [...] suspected to have Coronavirus/COVID-19? No / Unsure 03/23/2022 10:26 AM [employer] documented as of this encounter Miscellaneous Notes * Telephone Encounter - Belen Morillo - 03/28/2022 8:31 AM CST Please refill if appropriate. ET WORKER documented in this encounter Plan of Treatment Upcoming Encounters Date Type Department Care Team (Late st Contact Info) Description 05/26/2024 7:45 AM CDT Clinical Support [facility] [address] [phone] Nurse, Cc [facility] 05/26/2024 8:00 AM CDT Procedure Visit [facility] [address] [phone] José Goldman MD [address] [facility] [address] [address] documented as of this encounter Visit Diagnoses Not on filedocumented in this encounter Care Teams Oral Surgery Assistant Relationship Specialty Start Date End Date Harris Hodge [address] [place] [address] PCP - General Family Medicine 12/01/21 José Goldman MD [address] [place] [phone] Consulting Physician Oncology 12/01/21 documented as of this encounter
[2024-05-24] MEDS: METOCLOPRAMIDE HCL INJ 10 MG/2 ML VIAL (00:35)
[2024-05-24] MEDS: RAPID SEQUENCE INTUBATION KIT 1 EACH (00:35)
[2024-05-24 00:36] LABS: INR 3.6; Prothrombin Time 36.5 Seconds (11.1-14.7)
[2024-05-24 00:37] LABS: Partial Thromboplastin Time 53.8 Seconds (22.3-36.8)
[2024-05-24] MEDS: LORazepam INJ (*CRX) 2 MG/ML VIAL (00:57)
[2024-05-24] MEDS: HYDROmorphone HCL INJ (*CRX) 1 MG/ML SYR (00:57)
[2024-05-24 01:11] LABS: Alanine Aminotransferase 16 U/L (6-50); Albumin Level 3.4 g/dL (3.5-5.1); Alkaline Phosphatase 1285 U/L (38-126); Anion Gap 10 mmol/L (4-12); Anisocytosis 1+; Aspartate Amino Transferase 186 U/L (17-59); Bilirubin,Total 1.8 mg/dL (0.2-1.3); Blood Urea Nitrogen 19 mg/dL (9-20); Calcium 7.5 mg/dL (8.4-10.2); Carbon Dioxide 20 mmol/L (22-30); Chloride 106 mmol/L (98-107); Eosinophils Absolute Manual 0.05 K/mm3 (0.02-0.50); Eosinophils Percent Manual 1 % (0-4); Estimated CRCL calculation 104 ml/min; Estimated Glomerular Filt Rate > 60; Glucose 134 mg/dL (65-110); Hypochromasia 1+; Lymphocytes Absolute Manual 0.49 K/mm3 (1.1-4.5); Microcytosis 1+ (NORMAL); Monocytes Absolute Manual 0.05 K/mm3 (0.1-0.90); Monocytes Percent Manual 1 % (3-9); Neutrophils Percent Manual 89 % (46-73); Platelet Estimate Decreased (Adequate); Potassium 3.8 mmol/L (3.4-5.0); Schistocytes None Seen; Smudge Cells PRESENT; Sodium 136 mmol/L (137-145); Total Cells Counted 100
[2024-05-24 01:12] LABS: Band Neutrophils Percent 0 % (0-6); Neutrophils Absolute Manual 4.89 K/mm3 (1.3-6.7)
[2024-05-24] MEDS: FENTANYL 2,500MCG/NS250ML(*CRX 2,500 MCG/250 ML BAG 10 MCG IV CONT (01:26)
[2024-05-24] MEDS: PANTOPRAZOLE SODIUM IV 40 MG VIAL 80 MG IV PUSH (01:26)
[2024-05-24 01:27] LABS: Alveolar/Arterial O2 Gradient 124.2 mmHg; Base Excess ABG -5.9 mEq/l (+/-2.0); Fractional Inspired Oxygen 40 %; HCO3 ABG 19.1 mEq/l (22.0-26.0); Oxygen Saturation ABG 98.2 % (95.0-100.0); PO2 ABG 119.6 mmHg (80.0-100.0); PO2 FiO2 Ratio Arterial Blood 2.99 %; pH ABG 7.342 (7.350-7.450)
[2024-05-24] MEDS: MIDAZOLAM 100MG/NS 100ML(*CRX) 100 MG/100 ML BAG IV CONT (01:27)
[2024-05-24 01:28] LABS: Device VENTILATOR; Modified Allen's Test Pass; Site Drawn LEFT RADIAL
[2024-05-24 01:30] LABS: Arterial Blood Gas PEEP 5 cmH2O; Arterial Blood Gas Vent Mode CMV; Arterial Blood Gas Ventilator rate 16 /MIN
[2024-05-24 01:31] LABS: Arterial Blood Gas Tidal Volume 500 ml
[2024-05-24] MEDS: SODIUM CHLORIDE 0.9% IV 250 ML 30 ML IV CONT (01:38)
[2024-05-24] MEDS: TUBING, BLOOD SET 1 EACH XX (01:39)
[2024-05-24 02:12] LABS: Magnesium 2.1 mg/dL (1.6-2.3)
[2024-05-24 02:18] LABS: D Dimer > 20.00 ug/mL (<0.48); Fibrinogen < 60 mg/dl (215-510)
--- NOTE | 2024-05-24 02:53 | PC.NURSE ---
0025 This RN had finished assessing patient and due to patients decreased loc, repeated episodes of hematemesis so ERP notified immediately. 0030 ERP arrives to room with patients at bedside. ERP speaks with patient who needs frequent sternal rub to be aroused to converse. ERP speaks with in regards to code status, and patient state full code. ERP witnesses patient have episode of hematemesis and speaks with . Decision is made to intubate patient for airway protection. 0034 VORB to give 10mg Reglan IVP, given at 0035. 0035 VORB to draw up 20mg etomidate, and 100mg of rocuronium for intubation. RT at bedside with 7.5 ET tube. 0038 16F NG tube placed in Right nare by ERP, secured at 65. Spontaneous bloody emesis. 0048 20mg Etomidate given IVP. 0049 100mg Rocuronium given IVP. RT bagging patient. 0050 ERP placed 7.5 ET tube, with positive color change, visible chest rise and fall, bilateral breath sounds. 0052 Xray in room verifying placement. 0057 VORB to give 1mg dilaudid IVP, and 2mg ativan IVP. 0100 Patients back in room and giving info regarding patients medications and oncologist.
--- NOTE | 2024-05-24 03:16 | PC.NURSE ---
This RN and ERP in room speaking with patients and son in regards to patients plan of care. Patients and son decide to do comfort care.
[2024-05-24] MEDS: LORazepam INJ (*CRX) 2 MG/ML VIAL IV PUSH (03:59)
[2024-05-24] MEDS: GLYCOPYRROLATE INJ (*SP) 0.2 MG/ML VIAL IV PUSH (04:00)
[2024-05-24] MEDS: MORPHINE 50 MG/NS 100ML (*CRX) 50 MG/100 ML BAG 8 MG IV CONT (04:00)
--- NOTE | 2024-05-24 04:19 | PC.NURSE ---
0400 Patient taken out of bilateral soft restraints. RT at bedside. ERP speaking with patients family. 0410 RT extubated patient. Patient tolerated well. Family returns to bedside.
--- NOTE | 2024-05-24 04:49 | ED.GENADULT ---
HPI - General Adult General Chief complaint: GI Bleed Stated complaint: vomiting blood Time Seen by Provider: 05/24/24 00:21 History of Present Illness HPI narrative: This is a 68-year-old male history of metastatic prostate cancer undergoing chemotherapy presenting for coffee-ground emesis. Patient is somnolent. I cannot get him to stay awake long enough to answer any questions. Patient is actively vomiting dark red blood. Related Data Allergies Allergy/AdvReac Type Severity Reaction Status Date / Time No Known Allergies Allergy Verified 05/24/24 01:18 [facility] Past Medical History Medical History Prostate cancer Metastatic cancer Exam Narrative: APPEARANCE: Patient is somnolent lethargic, actively vomiting dark red blood Head: atraumatic. EYES: EOMI, NOSE: Atraumatic NECK: Trachea midline RESPIRATORY: No increased rate of breathing, scattered rhonchi CARDIOVASCULAR: Bradycardic, +1 edema lower extremities ABDOMINAL: Soft nontender no guarding or rebound MUSCULOSKELETAl: No obvious deformities NEURO: Lethargic Moving 4/4 extremities to command SKIN:: Warm, dry. Normal color PSYCHIATRIC: Lethargic Course Vital Signs Vital signs: Vital Signs Temperature 98.6 F 05/23/24 23:24 Pulse Rate 53 L 05/23/24 23:24 Respiratory Rate 22 H 05/23/24 23:24 Blood Pressure 186/70 H 05/23/24 23:24 Pulse Oximetry 96 05/23/24 23:24 Oxygen Delivery Room Air 05/23/24 23:24 Temperature 97.6 F 05/24/24 02:28 Pulse Rate 95 05/24/24 04:31 Respiratory Rate 23 H 05/24/24 04:31 Blood Pressure 112/67 05/24/24 04:31 Pulse Oximetry 97 05/24/24 04:31 Oxygen Delivery Mechanical Ventilation 05/24/24 03:15 Fraction of Inspired Oxygen 30 05/24/24 03:15 Procedures Intubation Intubation #1: Intubation Date: 05/24/24 Time out performed: Yes sedative: Etomidate Mg Given: 20 paralytic: Rocuronium Mg Given: 100 Laryngoscope: Pita Tube Size (cm): 7.5 Method of Intubation: orotracheal Number of Attempts: 1 Tube Secured Depth (cm): 23 Tube Secured Location: teeth Tube Placement Confirmation: visualized tube passing through cords, equal breath sounds bilaterally, no breath sounds over epigastrium and confirmation by capnometry Patient Tolerated Procedure: well Intubation Complications: none Medical Decision Making MDM Narrative Medical decision making narrative: -Course: 68-year-old male with history of metastatic prostate cancer on chemotherapy presenting with vomiting blood. Patient has decreased mental status. Goals of care were discussed with family this time and the patient is a full code. NG tube placed prior to intubation to decompress the stomach which returned approx 350 cc of dark red blood. Patient intubated for airway protection. Laboratory studies significant for hemoglobin of 6.8, platelets of 26. Patient was transfused RBCs and platelets for life-threatening bleed. However as more results came back including D-dimer greater than 20, fibrinogen undetectable and an INR of 3.6. Findings consistent with DIC. CT brain showed an acute on chronic 14mm subdural hematoma with 1 cm midline shift. These findings were discussed with the patient's and their son who are at bedside. We discussed maximal treatment including transfer to a tertiary care center for neurosurgical evaluation and transfusion of further blood products. We also discussed comfort measures. The says she has seen him decline over the last several years. They opted for comfort measures only. Patient was terminally extubated and admitted to the hospital for end of life care. Vital Signs Vital Signs: Vital Signs Temperature 98.6 F 05/23/24 23:24 Pulse Rate 53 L 05/23/24 23:24 Respiratory Rate 22 H 05/23/24 23:24 Blood Pressure 186/70 H 05/23/24 23:24 Pulse Oximetry 96 05/23/24 23:24 Oxygen Delivery Room Air 05/23/24 23:24 Temperature 97.6 F 05/24/24 02:28 Pulse Rate 95 05/24/24 04:31 Respiratory Rate 23 H 05/24/24 04:31 Blood Pressure 112/67 05/24/24 04:31 Pulse Oximetry 97 05/24/24 04:31 Oxygen Delivery Mechanical Ventilation 05/24/24 03:15 Fraction of Inspired Oxygen 30 05/24/24 03:15 Lab Data 05/24/24 00:19 05/24/24 00:19 Labs: Lab Results 05/24/24 05/24/24 Range/Units 00:19 01:24 WBC 5.5 (4.5-10.0) K/mm3 RBC 2.49 L (4.6-6.20) M/mm3 Hgb 6.8 L* (14.0-18.0) g/dL Hct 21.4 L (42.0-52.0) % MCV 85.9 (80-100) fl MCH 27.3 (26-34) pg MCHC 31.8 L (32-36) g/dl RDW 19.7 H (11.5-14.5) % Plt Count 26 L (150-375) k/mm3 MPV TNP Immature Gran % (Auto) Not Reportable Neut % (Auto) Not Reportable Lymph % (Auto) Not Reportable [place] % (Auto) Not Reportable Eos % (Auto) Not Reportable Baso % (Auto) Not Reportable Lymph # (Auto) Not Reportable [place] # (Auto) Not Reportable Eos # (Auto) Not Reportable Baso # (Auto) Not Reportable Abs Immat Gran (auto) Not Reportable Absolute Neuts (auto) Not Reportable Absolute Nucleated RBC Not Reportable Total Counted 100 Neutrophils % (Manual) 89 H (46-73) % Band Neutrophils % 0 (0-6) % Lymphocytes % (Manual) 9.0 L (18-44) % Monocytes % (Manual) 1 L (3-9) % Eosinophils % (Manual) 1 (0-4) % Nucleated RBC % Not Reportable Abs Neuts (Manual) 4.89 (1.3-6.7) K/mm3 Abs Lymphs (Manual) 0.49 L (1.1-4.5) K/mm3 Abs Monocytes (Manual) 0.05 L (0.1-0.90) K/mm3 Absolute Eos (Manual) 0.05 (0.02-0.50) K/mm3 Smudge Cells Present Platelet Estimate Decreased (Adequate) % Immature Plt Fraction 8.9 (0.9-11.2) % Hypochromasia 1+ Anisocytosis 1+ Microcytosis 1+ (NORMAL) Schistocytes None seen PT 36.5 H (11.1-14.7) Seconds INR 3.6 APTT 53.8 H (22.3-36.8) Seconds Fibrinogen < 60 L (215-510) mg/dl D-Dimer > 20.00 H (<0.48) ug/mL Minute Volume Not Reportable Vent Mode Cmv Tidal Volume 500 ml PEEP 5 cmH2O Peak Inspir Pressure Not Reportable Pressure Support Not Reportable Sodium 136 L (137-145) mmol/L Potassium 3.8 (3.4-5.0) mmol/L Chloride 106 (98-107) mmol/L Carbon Dioxide 20 L (22-30) mmol/L Anion Gap 10 (4-12) mmol/L BUN 19 (9-20) mg/dL Creatinine 0.62 L (0.7-1.3) mg/dL Estim Creat Clear Calc 104 ml/min Estimated GFR > 60 (59 - ) Glucose 134 H (65-110) mg/dL Calcium 7.5 L (8.4-10.2) mg/dL Magnesium 2.1 (1.6-2.3) mg/dL Total Bilirubin 1.8 H (0.2-1.3) mg/dL AST 186 H (17-59) U/L ALT 16 (6-50) U/L Alkaline Phosphatase 1285 H (38-126) U/L Total Protein 6.0 L (6.3-8.2) g/dL Albumin 3.4 L (3.5-5.1) g/dL Blood Type A Negative Antibody Screen Negative Crossmatch See Detail ABG Data ABG results: 05/24/24 01:24 Puncture Site Left radial ABG pH 7.342 L ABG pCO2 36.0 ABG pO2 119.6 H ABG PO2/FiO2 Ratio 2.99 ABG HCO3 19.1 L ABG O2 Saturation 98.2 ABG Base Excess -5.9 A-a Gradient 124.2 O2 Delivery Device Ventilator O2 Liters/Min [employer] 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
--- NOTE | 2024-05-24 06:54 | PC.NURSE ---
patient arrived to room from ed via stretcher at 0640. noted that patient had no chest rise and no movement and color pale. respirations had ceased. unable to aucsultate heart beat. this was confirmed by froylan Bingham rn. transferred patient to bed and disconnected lines and tubes and notified and family that was outside of room. family consoled. charge nurse and warehouse receiver notified. family currently at bedside grieving.
--- NOTE | 2024-05-24 07:32 | PM.IMHP ---
H&P: HPI History of Present Illness Date/Time: 05/24/24 07:32 Chief Complaint: Acute GI Bleed PMFSH Past Medical History Medical History Prostate cancer Metastatic cancer Meds Home Medications and Allergies Home Medications ?Medication ?Instructions ?Recorded ?Confirmed ?Type furosemide 40 mg tablet mg 05/24/24 History hydrocodone 5 mg-acetaminophen 325 tablet 05/24/24 History mg tablet mirtazapine 15 mg tablet mg 05/24/24 History potassium chloride 20 mEq meq PO 05/24/24 History tablet,extended release(part/cryst) prednisone 5 mg tablet mg 05/24/24 History tamsulosin 0.4 mg capsule (Flomax) 0.4 mg PO DAILY 05/24/24 05/24/24 History triamcinolone acetonide 0.1 % applic topical 05/24/24 History topical cream Allergies Allergy/AdvReac Type Severity Reaction Status Date / Time No Known Allergies Allergy Verified 05/24/24 01:18 Vital Signs Vital Signs - 24 hr 05/23/24 23:24 05/24/24 00:26 05/24/24 00:30 Temperature 98.6 F Pulse Rate 53 L 53 L 84 Respiratory Rate 22 H 22 H 33 H Blood Pressure 186/70 H Pulse Oximetry 96 Oxygen Delivery Room Air Oxygen Flow Rate Fraction of Inspired Oxygen 05/24/24 00:45 05/24/24 00:59 05/24/24 01:00 Temperature Pulse Rate 72 89 Respiratory Rate 24 H 13 Blood Pressure 174/81 H Pulse Oximetry 93 98 Oxygen Delivery Mechanical Ventilation Oxygen Flow Rate Fraction of Inspired Oxygen 40 05/24/24 01:00 05/24/24 01:01 05/24/24 01:15 Temperature Pulse Rate 83 76 84 Respiratory Rate 16 14 16 Blood Pressure 182/89 H Pulse Oximetry 99 99 100 Oxygen Delivery Oxygen Flow Rate Fraction of Inspired Oxygen 05/24/24 01:16 05/24/24 01:26 05/24/24 01:27 Temperature Pulse Rate 85 77 75 Respiratory Rate 16 100 H 16 Blood Pressure 170/84 H Pulse Oximetry 100 Oxygen Delivery Oxygen Flow Rate Fraction of Inspired Oxygen 05/24/24 01:30 05/24/24 01:31 05/24/24 01:32 Temperature Pulse Rate 76 74 75 Respiratory Rate 16 16 16 Blood Pressure 175/75 H Pulse Oximetry 100 100 100 Oxygen Delivery Oxygen Flow Rate Fraction of Inspired Oxygen 05/24/24 01:37 05/24/24 01:40 05/24/24 01:45 Temperature 98.0 F Pulse Rate 78 80 Respiratory Rate 16 16 Blood Pressure 175/75 H Pulse Oximetry 100 98 100 Oxygen Delivery Mechanical Ventilation Oxygen Flow Rate Fraction of Inspired Oxygen 35 05/24/24 01:46 05/24/24 01:53 05/24/24 02:26 Temperature 97.9 F Pulse Rate 81 77 86 Respiratory Rate 16 16 16 Blood Pressure 165/75 H 165/75 H Pulse Oximetry 100 100 Oxygen Delivery Oxygen Flow Rate Fraction of Inspired Oxygen 05/24/24 02:27 05/24/24 02:28 05/24/24 02:30 Temperature 97.6 F Pulse Rate 88 85 76 Respiratory Rate 16 17 17 Blood Pressure 143/67 H 143/67 H Pulse Oximetry 100 100 100 Oxygen Delivery Oxygen Flow Rate Fraction of Inspired Oxygen 05/24/24 02:31 05/24/24 02:45 05/24/24 02:46 Temperature Pulse Rate 80 74 76 Respiratory Rate 19 20 20 Blood Pressure 133/60 129/66 Pulse Oximetry 100 100 100 Oxygen Delivery Oxygen Flow Rate Fraction of Inspired Oxygen 05/24/24 03:00 05/24/24 03:01 05/24/24 03:15 Temperature Pulse Rate 74 71 68 Respiratory Rate 20 20 Blood Pressure 124/64 Pulse Oximetry 100 100 100 Oxygen Delivery Mechanical Ventilation Oxygen Flow Rate Fraction of Inspired Oxygen 30 05/24/24 03:15 05/24/24 03:16 05/24/24 03:30 Temperature Pulse Rate 72 72 67 Respiratory Rate 21 H 23 H 22 H Blood Pressure 125/57 L Pulse Oximetry 100 100 100 Oxygen Delivery Oxygen Flow Rate Fraction of Inspired Oxygen 05/24/24 03:31 05/24/24 03:32 05/24/24 03:45 Temperature Pulse Rate 70 68 71 Respiratory Rate 22 H 21 H 22 H Blood Pressure 123/69 Pulse Oximetry 100 100 100 Oxygen Delivery Oxygen Flow Rate Fraction of Inspired Oxygen 05/24/24 03:46 05/24/24 04:00 05/24/24 04:00 Temperature Pulse Rate 72 67 68 Respiratory Rate 23 H 22 H 22 H Blood Pressure 120/63 Pulse Oximetry 100 100 Oxygen Delivery Oxygen Flow Rate Fraction of Inspired Oxygen 05/24/24 04:01 05/24/24 04:06 05/24/24 04:07 Temperature Pulse Rate 68 96 95 Respiratory Rate 22 H 22 H 22 H Blood Pressure 116/63 Pulse Oximetry 100 Oxygen Delivery Oxygen Flow Rate Fraction of Inspired Oxygen 05/24/24 04:15 05/24/24 04:16 05/24/24 04:30 Temperature Pulse Rate 98 101 H 94 Respiratory Rate 23 H 25 H 23 H Blood Pressure 120/68 Pulse Oximetry 95 95 98 Oxygen Delivery Oxygen Flow Rate Fraction of Inspired Oxygen 05/24/24 04:31 05/24/24 04:32 05/24/24 04:45 Temperature Pulse Rate 95 95 90 Respiratory Rate 23 H 23 H 23 H Blood Pressure 112/67 Pulse Oximetry 97 97 91 Oxygen Delivery Oxygen Flow Rate Fraction of Inspired Oxygen 05/24/24 04:46 05/24/24 05:00 05/24/24 05:01 Temperature Pulse Rate 91 89 89 Respiratory Rate 22 H 24 H 24 H Blood Pressure 114/60 117/62 Pulse Oximetry 91 96 97 Oxygen Delivery Oxygen Flow Rate Fraction of Inspired Oxygen 05/24/24 05:10 05/24/24 05:15 05/24/24 05:16 Temperature Pulse Rate 84 87 Respiratory Rate 24 H 24 H Blood Pressure 114/61 Pulse Oximetry 99 99 100 Oxygen Delivery Nasal Cannula Oxygen Flow Rate 1 Fraction of Inspired Oxygen 05/24/24 05:30 05/24/24 05:31 05/24/24 05:45 Temperature Pulse Rate 86 84 83 Respiratory Rate 25 H 25 H 25 H Blood Pressure 114/59 L Pulse Oximetry 100 99 99 Oxygen Delivery Oxygen Flow Rate Fraction of Inspired Oxygen 05/24/24 06:00 05/24/24 06:23 Temperature Pulse Rate 85 92 Respiratory Rate 25 H 18 Blood Pressure 108/54 L Pulse Oximetry 98 97 Oxygen Delivery Oxygen Flow Rate Fraction of Inspired Oxygen H&P: Results Labs Labs: Short CBC 05/24/24 Range/Units 00:19 WBC 5.5 (4.5-10.0) K/mm3 Hgb 6.8 L* (14.0-18.0) g/dL Hct 21.4 L (42.0-52.0) % Plt Count 26 L (150-375) k/mm3 BMP 05/24/24 00:19 Sodium 136 L Potassium 3.8 Chloride 106 Carbon Dioxide 20 L BUN 19 Creatinine 0.62 L Glucose 134 H Calcium 7.5 L Liver Function 05/24/24 Range/Units 00:19 Total Bilirubin 1.8 H (0.2-1.3) mg/dL AST 186 H (17-59) U/L ALT 16 (6-50) U/L Alkaline Phosphatase 1285 H (38-126) U/L Albumin 3.4 L (3.5-5.1) g/dL
--- NOTE | 2024-05-24 09:32 | PM.DDS ---
Discharge Summary Probable Cause of Probable Cause of : acute left subdural hematoma Summary Hospital Course: This is a 68-year-old male history of metastatic prostate cancer undergoing chemotherapy presenting for coffee-ground emesis. Patient is somnolent. I cannot get him to stay awake long enough to answer any questions. Patient is actively vomiting dark red blood. Patient had decreased mental status and goals were discussed with family and initially patient was on full code. NG tube was placed prior to intubation. ED workup showed Hg 6.8, platelets of 26. Transfusion was of RBCs was initiated. However as more results came back including D-dimer greater than 20, fibrinogen undetectable and an INR of 3.6. Findings consistent with DIC. CT brain showed an acute on chronic 14mm subdural hematoma with 1 cm midline shift. These findings were discussed with family and ultimately the decision comfort measures only was made. Patient was extubated and admitted for end of life care. Patient was pronounced before I could make my examination.
--- NOTE | 2024-05-24 14:46 | PC.NURSE ---
Pt . IV, hardwick and NGT removed by JAZMINE Antonio at 1415 05/24/24.
== END 2024-05-24 06:45 | disposition expired | DRG 64 ==
LOC: ANHED 05-24 05:02 → ANH3MEDSUR 05-24 06:12
PROVIDERS: Admitting Provider Internal Medicine; Emergency Provider Emergency Medicine; Visit Provider Physician Assistant
DX: I62.01 Nontraumatic acute subdural hemorrhage (principal); D65 Disseminated intravascular coagulation [defibrination syndrome]; K92.2 Gastrointestinal hemorrhage, unspecified; C79.9 Secondary malignant neoplasm of unspecified site; C61 Malignant neoplasm of prostate; Z92.21 Personal history of antineoplastic chemotherapy
CPT/HCPCS: 31500; 36415; 36430; 36600; 70450; 71275; 74174; 80053; 82805; 83735; 85018; 85025; 85055; 85380; 85384; 85610; 85730; 86850; 86900; 86901; 86920; 94002; 96361; 96374; 96375; 99285; J1171; J1596; J2060; J2250; J2270; J2470; J2765; J3010; J7050; P9016; Q9967